=== PATIENT | female | born 1950 | race American Indian/Alaskan Native ===

== ENCOUNTER 2016-08-14 10:39 | Outpatient (CLI) | payer MEDICARE ==
--- NOTE | 2016-08-15 07:56 | Vascular Lab Report ---
Left Lower Extremity Venous Duplex Study: Reason for Exam: Leg pain. Comments on the Right: A limited duplex study was done of the proximal veins of the right lower extremity. All veins visualized are freely compressible without evidence of internal echogenicity. Flow is spontaneous and phasic throughout. No evidence of acute or chronic thrombus is seen in any of the vessels visualized. Comments on the Left: All veins visualized are freely compressible without evidence of internal echogenicity. Flow is spontaneous and phasic throughout. No evidence of acute or chronic thrombus is seen in any of the vessels visualized. Soft tissue changes consistent with Solis's cyst. Impression: No evidence of acute or chronic deep venous thrombosis in the left lower extremity.
== END 2016-08-14 10:40 | disposition home or self-care (01) ==
LOC: VAS 10:39
PROVIDERS: ATTEND Internal Medicine
DX: M79.605 Pain in left leg (principal); I10 Essential (primary) hypertension

== ENCOUNTER 2016-09-22 11:20 | Outpatient (CLI) | payer MEDICARE ==
--- NOTE | 2016-09-22 14:11 | Ultrasound Report ---
ULTRASOUND RENAL BILATERAL HISTORY: Chronic kidney disease, stage III. TECHNIQUE: transabdominal ultrasound with color Doppler interrogation. FINDINGS: The right kidney measures 10.3 x 3.1 x 4.6cm. Right renal cortex: 1.0cm. The left kidney measures 10.0 x 5.0 x 4.3cm. Left renal cortex: 1.0cm. The kidneys are normal size, contour and position. There is increased renal parenchymal echotexture bilaterally. Corticomedullary differentiation is preserved. No evidence for cystic disease, mass, hydronephrosis or perinephric fluid. The views of the bladder and the region of the ureters appear normal. IMPRESSION: Renal parenchymal disease. No focal renal lesion or hydronephrosis.
== END 2016-09-22 11:21 | disposition home or self-care (01) ==
LOC: US 11:20
PROVIDERS: ATTEND Student in an Organized Health Care Education/Training Program
DX: N18.3 Chronic kidney disease, stage 3 (moderate) (principal)
CPT/HCPCS: 76770

== ENCOUNTER 2016-11-11 09:25 | Outpatient (CLI) | payer MEDICARE ==
--- NOTE | 2016-11-11 11:05 | Mammography Report ---
BONE DENSITY STUDY: DEFINITIONS: BMD = Bone Mineral Density T-score = BMD related to mean peak bone mass of young adult (mean expressed in Standard Deviation) Z-score = Age matched BMD expressed in SD World Health Organization (WHO) Diagnostic Criteria Normal T-score > -1 SD Osteopenia T-score between -1 and -2.4 SD Osteoporosis T-score -2.5 SD or below FINDINGS: The weighted average BMD of lumbar spine L1-L4 is 0.954 with a T-score of -0.8. The weighted average BMD of hip is 0.958 with a T-score of 0.1. IMPRESSION: The patient's T-score is diagnostic for normal bone density and low relative risk for fracture. NOTE: BMD is not the only risk factor for fracture; also consider factors such as the patient's age, risk of falling, previous osteoporotic fracture, family history of osteoporotic fractures, current smoker, and low body weight. Rice's triangle is a region of interest in femur, predominantly of trabecular bone. It is not a true anatomic site, and [facility] does not recommend its use clinically.
== END 2016-11-11 09:26 | disposition home or self-care (01) ==
LOC: MAMMO 09:25
PROVIDERS: ATTEND Obstetrics & Gynecology
DX: M85.88 Other specified disorders of bone density and structure, other site (principal); A00-B99 Certain infectious and parasitic diseases
CPT/HCPCS: 77080

== ENCOUNTER 2017-01-19 07:51 | Outpatient (CLI) | payer MEDICARE ==
--- NOTE | 2017-01-19 08:31 | Mammography Report ---
BILATERAL MAMMOGRAM: FINDINGS: There are scattered fibroglandular densities (approximately 25%-50% glandular). No mass, distortion, suspicious calcification, or skin change is seen. No significant change identified when compared to prior examination in January 2016. CAD was utilized. IMPRESSION: Negative mammogram. There is no mammographic evidence of malignancy. RECOMMENDATION: Follow-up per ACS guidelines. BI-RADS CATEGORY: 1 = Negative ACR BI-RADS MAMMOGRAPHIC CODES: 0 = Needs additional imaging evaluation; 1 = Negative; 2 = Benign; 3 = Probably benign; 4 = Suspicious; 5 = Malignant; 6 = Known biopsy-proven malignancy COMMENT: 1. Dense breast tissue, i.e., adenosis, fibrocystic changes, etc., may obscure an underlying neoplasm. 2. Approximately 10% of cancers are not detected with mammography. 3. A negative mammography report should not delay biopsy if a clinically suspicious mass is present. COMMENT: Patient follow-up letters are generated in [employer].
== END 2017-01-19 07:52 | disposition home or self-care (01) ==
LOC: MAMMO 07:51
PROVIDERS: ATTEND Obstetrics & Gynecology
DX: Z12.31 Encounter for screening mammogram for malignant neoplasm of breast (principal); I11.0 Hypertensive heart disease with heart failure; I50.9 Heart failure, unspecified; J44.9 Chronic obstructive pulmonary disease, unspecified; I48.91 Unspecified atrial fibrillation
CPT/HCPCS: 77067; G0202

== ENCOUNTER 2017-03-12 08:08 | Day surgery (SDC) | payer MEDICARE ==
[~2017-03-12 08:08] MED LIST: TETRACAINE 0.5% OD PRN
--- NOTE | 2017-03-12 09:46 | Anesthesia Day of Surgery ---
Anesthesia Day of Surgery - Day of Surgery Patient Examined: Yes Patient is NPO: Yes Beta Blockers: Yes
--- NOTE | 2017-03-12 09:49 | Anesthesia Consultation ---
Anesthesia Consult and Med Hx Date of service: 03/12/17 - Airway Anesthetic Teeth Evaluation: Good ROM Head & Neck: Adequate Mental/Hyoid Distance: Adequate Mallampati Class: Class II Intubation Access Assessment: Probably Good - Pulmonary Exam CTA: Yes - Cardiac Exam Cardiac Exam: RRR - Pre-Operative Health Status ASA Pre-Surgery Classification: ASA3 Proposed Anesthetic Plan: MAC - Pulmonary Hx Smoking: Yes (QUIT 1996) Hx Asthma: No Hx Pneumonia: No Hx Sleep Apnea: No - Cardiovascular System Hx Hypertension: Yes (h/o CHF) Hx Coronary Artery Disease: No Hx Heart Attack/AMI: No Hx Angina: No Hx Percutaneous Transluminal Coronary Angioplasty (PTCA): No Hx Cardia Arrhythmia: Yes () Hx Pacemaker: No Hx Internal Defibrillator: No Hx Valvular Heart Disease: No Hx Heart Murmur: No Hx Peripheral Vascular Disease: No - Endocrine Hx Non-Insulin Dependent Diabetes: Yes - Hematic Hx Anemia: Yes (IN THE PAST) - Other Systems Hx Alcohol Use: No Hx Substance Use: No Hx Cancer: No Hx Obesity: Yes (morbid)
[2017-03-12] MEDS: AK-Dilate OD SCH ×3 (10:05→10:15)
[2017-03-12] MEDS: MYDRIACYL OD SCH ×3 (10:05→10:15)
[2017-03-12] MEDS: VIGAMOX OD SCH ×3 (10:05→10:15)
[2017-03-12] MEDS ORDERED: SUBLIMAZE ONE (10:40)
[2017-03-12] MEDS ORDERED: VERSED ONE (10:41)
--- NOTE | 2017-03-12 11:28 | Operative Report ---
Operative Report Operative Report: PATIENT'S NAME: DATE OF : DATE OF SURGERY: 03/12/2017 PREOPERATIVE DIAGNOSIS: Cataract right eye POSTOPERATIVE DIAGNOSIS: Same OPERATIVE PROCEDURE: Phacoemulsification with intraocular lens implantation, right eye SURGEON: Evita Hernandez M.D. MARKETING OUTREACH COORDINATOR SURGEON: Jostin Lens: [id number] 21.0 D ANESTHESIA: Monitored anesthesia care in combination with topical and intracameral anesthesia because of the established specific risk of reflux, arrhythmias, or anxiety attacks associated with ocular manipulation, as well as the difficulty of the foil operator to manage such potentially catastrophic events while simultaneously attempting to complete the surgical procedure and was deemed necessary for the patient's safety to have an Package Sealer Machine present during the procedure whenever possible. An Package Sealer Machine was utilized to regulate the intravenous sedation of the patient so the patient was cooperative yet not asleep in order for the patient to successfully maintain fixation of the eye on the operating light of the microscope. COMPLICATIONS: No surgical complications No blood loss. ALLERGIES: No known drug allergies PROGNOSIS: Excellent INDICATIONS FOR SURGERY: The patient is undergoing surgery in the hopes of eliminating or improving these visual difficulties. PROCEDURE: After arriving at the surgery center, the patient was given topical anesthetic and dilating drops, as noted in the record. The patient was then taken into the operating room and given more anesthetic drops. The eyelids , lashes, and lid margins were scrubbed with Betadine solution, and the patient was draped. The Nurse Package Sealer Machine administered IV sedation and monitored the patient during the procedure. The eye was then fixated with a 0.12, and a stab incision was made in the peripheral clear cornea into the anterior chamber. This was made on my left side. Viscoelastic was next used to fill the anterior chamber. The eye was once again fixated with the 0.12 forceps and a keratome was used make an incision in clear cornea peripherally on my right hand side temporally. The capsule forceps were used to open the central anterior capsule and then make a continuous round capsulotomy. Hydrodissection was carried out utilizing a cannula and balanced salt solution to delineate the cortical material from the capsule and the nucleus from the cortical material. The phaco tip was introduced into the eye and used to remove the anterior cortical material in the area of the capsulotomy. Then the phaco tip was buried into the nucleus, and a chopping instrument was introduced into the eye and used to provide countertraction in the nucleus between this instrument and the phaco tip fracturing the nucleus. This procedure was repeated multiple times, providing multiple small segments of the lens, and then the phaco tip was used to remove each of these segments. An I/A tip was then used to remove the remaining cortex. The anterior chamber was refilled with viscoelastic. An one-piece, acrylic intraocular lens was then placed into an inserting cartridge. The tip of the inserting cartridge was introduced into the keratome incision and into the anterior chamber. The implant was gently advanced through the cartridge and into the eye, where it unfolded, and both haptics were placed in the capsular bag, where it centered nicely and appeared to be well fixated. After placement of the intraocular lens, the I~and~A handpiece was placed back into the eye and used to remove the viscoelastic, including viscoelastic that was behind the optic of the intraocular lens. The anterior chamber was then filled with balanced salt solution, and hydration of the wound was used to cause swelling of the wound and more appropriate watertight closure. When the wound was found to be firm, the patient was asked to comment on how bright the light was. If there was no light perception at all or if the light was substantially dimmer than during the rest of the surgery, the amount of fluid in the eye was decompressed to lower the intraocular pressure until the patient could see the bright light again. This was done to avoid any damage or decreased blood flow to the optic nerve. MEDICATIONS APPLIED AT END OF SURGERY: One drop of Pred Forte and Vigamox The patient was given a shield to wear at night and was instructed not to rub or push on the eye. DISCHARGE SUMMARY: The patient was released in stable condition. The patient and those with the patient were given a written sheet of postoperative instructions and counseling on any abnormal laboratory studies. The patient is to see us tomorrow for follow-up in the office and is to call immediately for any difficulties. Evita Hernandez M.D. Date
--- NOTE | 2017-03-12 11:29 | Short Stay Summary ---
Short Stay Documentation Date of service: 03/12/17 - History H&P: obtained from office - Allergies and Medications Current Medications: Allergies No Known Allergies Allergy (Verified 12/21/13 14:56) Home Medications Medication Instructions Recorded Confirmed Last Taken Type Carvedilol 1 tab PO BID 12/21/13 03/12/17 03/12/17 History Aspirin EC [Aspirin Enteric Coated 81 mg PO QDAY #30 tablet.dr 03/12/1503/05/17 Rx TAB] ISOSORBIDE MONOnitrate [Imdur ER] 30 mg PO DAILY #30 tab.er.24h 03/12/1503/12/17 Rx NIFEdipine XL [Procardia Xl] 60 mg PO QDAY #30 tablet 03/12/15 03/12/17 Rx AtorvaSTATin [Lipitor] 40 mg PO QHS 03/09/17 03/12/17 03/11/17 History Latanoprost 0.005% [Xalatan 0.005%] 1 drop OU QPM 03/09/17 03/12/17 03/11/17 History medroxyPROGESTERone ACETATE 10 mg PO QDAY 03/09/17 03/12/17 03/11/17 History [Provera] metFORMIN [Glucophage] 500 mg PO BID 03/09/17 03/12/17 03/11/17 History Active Medications Moxifloxacin HCl (Vigamox) 1 drops OD Q5MIN [facility] Stop: 03/14/17 06:01 Last Admin: 03/12/17 10:15 Dose: 1 drops Phenylephrine HCl (Ak-Dilate) 1 drops OD Q5MIN [facility] Stop: 03/14/17 06:01 Last Admin: 03/12/17 10:15 Dose: 1 drops Prednisolone Acetate (Pred Forte 1%) 1 drops OD QID [facility] Tetracaine HCl (Tetracaine 0.5%) 1 drops OD Q5M PRN PRN Reason: Analgesia Last Admin: 03/12/17 10:05 Dose: 1 drops Tropicamide (Mydriacyl) 1 drops OD Q5MIN [facility] Stop: 03/14/17 06:01 Last Admin: 03/12/17 10:15 Dose: 1 drops - Brief post op/procedure progress note Date of procedure: 03/12/17 Pre-op diagnosis: cataract right eye Post-op diagnosis: same Procedure: Phacoemulsification with intraocular lens insertion right eye Anesthesia: MAC Surgeon: MORRIS BERNARDO Estimated blood loss: none Pathology: none Condition: stable - Disposition Condition at discharge: Good Disposition: DC-01 TO HOME OR SELFCARE - Discharge Diagnoses (1) Cataract Status: Resolved Qualifiers: Cataract type: age-related Age-related cataract type: nuclear Infantile/ juvenile cataract type: I Traumatic cataract type: T Complicated cataract type: C Secondary cataract type: S Laterality: right Qualified Code(s): H25.11 - Age-related nuclear cataract, right eye Short Stay Discharge Plan Follow up with: DOROTHY HENDRICKSON MD [Primary Care Provider] - 7 Days
[2017-03-12] MEDS ORDERED: PRED FORTE 1% ONE (11:50)
[2017-03-12] MEDS ORDERED: PRED FORTE 1% OD SCH (14:00)
--- NOTE | 2017-03-12 14:21 | Post Anesthesia Evaluation ---
- Post Anesthesia Evaluation Patient Participated: Yes Airway Patent: Yes Stable Respiratory Function: Yes Nausea/Vomiting: No Temp > 96.8F: Yes Pain Manageable: Yes Adequeate Hydration: Yes Anesthesia Complications: No Patient on Ventilator: No
[2017-03-12 15:47] VITALS: BP 137/89
== END 2017-03-12 12:15 | disposition home or self-care (01) ==
LOC: OR 08:08
DX: E11.36 Type 2 diabetes mellitus with diabetic cataract (principal); I11.0 Hypertensive heart disease with heart failure; I50.9 Heart failure, unspecified; I48.91 Unspecified atrial fibrillation; D64.9 Anemia, unspecified; E66.01 Morbid (severe) obesity due to excess calories; Z68.41 Body mass index [BMI] 40.0-44.9, adult; Z79.84 Long term (current) use of oral hypoglycemic drugs; Z79.899 Other long term (current) drug therapy; Z87.891 Personal history of nicotine dependence
CPT/HCPCS: 66984; 82962; J2250; J3010; V2632

== ENCOUNTER 2017-03-26 07:27 | Day surgery (SDC) | payer MEDICARE ==
[~2017-03-26 07:27] MED LIST changes: -TETRACAINE 0.5% OD PRN; +TETRACAINE 0.5% OS PRN
--- NOTE | 2017-03-26 08:02 | Anesthesia Day of Surgery ---
Anesthesia Day of Surgery - Day of Surgery Patient Examined: Yes Patient H&P Reviewed: Yes Patient is NPO: Yes Beta Blockers: Yes
--- NOTE | 2017-03-26 08:02 | Anesthesia Consultation ---
Anesthesia Consult and Med Hx Date of service: 03/26/17 - Airway Anesthetic Teeth Evaluation: Good ROM Head & Neck: Adequate Mental/Hyoid Distance: Adequate Mallampati Class: Class II Intubation Access Assessment: Probably Good - Pulmonary Exam CTA: Yes - Cardiac Exam Cardiac Exam: RRR - Pre-Operative Health Status ASA Pre-Surgery Classification: ASA3 Proposed Anesthetic Plan: MAC - Pulmonary Hx Smoking: Yes (QUIT 1996) Hx Asthma: No COPD: Yes Hx Pneumonia: No Hx Sleep Apnea: No - Cardiovascular System Hx Hypertension: Yes (h/o CHF) Hx Coronary Artery Disease: No Hx Heart Attack/AMI: No Hx Angina: No Hx Percutaneous Transluminal Coronary Angioplasty (PTCA): No Hx Cardia Arrhythmia: Yes () Hx Pacemaker: No Hx Internal Defibrillator: No Hx Valvular Heart Disease: No Hx Heart Murmur: No Hx Peripheral Vascular Disease: No - Endocrine Hx Non-Insulin Dependent Diabetes: Yes - Other Systems Hx Cancer: No Hx Obesity: Yes
[2017-03-26] MEDS: AK-Dilate OS SCH ×3 (08:05→08:15)
[2017-03-26] MEDS: MYDRIACYL OS SCH ×3 (08:05→08:15)
[2017-03-26] MEDS: VIGAMOX OS SCH ×3 (08:05→08:15)
[2017-03-26] MEDS ORDERED: SUBLIMAZE ONE (09:09)
[2017-03-26] MEDS ORDERED: VERSED ONE (09:10)
--- NOTE | 2017-03-26 10:08 | Short Stay Summary ---
Short Stay Documentation Date of service: 03/26/17 - History H&P: obtained from office - Allergies and Medications Current Medications: Allergies No Known Allergies Allergy (Verified 12/21/13 14:56) Home Medications Medication Instructions Recorded Confirmed Last Taken Type Carvedilol 1 tab PO BID 12/21/13 03/12/17 03/12/17 History Aspirin EC [Aspirin Enteric Coated 81 mg PO QDAY #30 tablet.dr 03/12/1503/05/17 Rx TAB] ISOSORBIDE MONOnitrate [Imdur ER] 30 mg PO DAILY #30 tab.er.24h 03/12/1503/12/17 Rx NIFEdipine XL [Procardia Xl] 60 mg PO QDAY #30 tablet 03/12/15 03/12/17 Rx AtorvaSTATin [Lipitor] 40 mg PO QHS 03/09/17 03/12/17 03/11/17 History Latanoprost 0.005% [Xalatan 0.005%] 1 drop OU QPM 03/09/17 03/12/17 03/11/17 History medroxyPROGESTERone ACETATE 10 mg PO QDAY 03/09/17 03/12/17 03/11/17 History [Provera] metFORMIN [Glucophage] 500 mg PO BID 03/09/17 03/12/17 03/11/17 History Active Medications Moxifloxacin HCl (Vigamox) 1 drops OS Q5MIN [facility] Stop: 03/28/17 06:01 Last Admin: 03/26/17 08:15 Dose: 1 drops Phenylephrine HCl (Ak-Dilate) 1 drops OS Q5MIN [facility] Stop: 03/28/17 06:01 Last Admin: 03/26/17 08:15 Dose: 1 drops Prednisolone Acetate (Pred Forte 1%) 1 drops OS QID [facility] Tetracaine HCl (Tetracaine 0.5%) 1 drops OS Q5M PRN PRN Reason: Analgesia Stop: 03/26/17 18:00 Last Admin: 03/26/17 08:04 Dose: 1 drops Tropicamide (Mydriacyl) 1 drops OS Q5MIN [facility] Stop: 03/28/17 06:01 Last Admin: 03/26/17 08:15 Dose: 1 drops - Brief post op/procedure progress note Date of procedure: 03/26/17 Pre-op diagnosis: left cataract Post-op diagnosis: same Procedure: Phacoemulsification with intraocular lens insertion left eye Anesthesia: MAC Surgeon: MORRIS BERNARDO Estimated blood loss: none Pathology: none Condition: stable - Disposition Condition at discharge: Good Disposition: DC-01 TO HOME OR SELFCARE - Discharge Diagnoses (1) Cataract Status: Resolved Qualifiers: Cataract type: age-related Age-related cataract type: nuclear Infantile/ juvenile cataract type: I Traumatic cataract type: T Complicated cataract type: C Secondary cataract type: S Laterality: left Qualified Code(s): H25.12 - Age-related nuclear cataract, left eye Short Stay Discharge Plan Follow up with: DOROTHY HENDRICKSON MD [Primary Care Provider] - 7 Days
--- NOTE | 2017-03-26 10:08 | Operative Report ---
Operative Report Operative Report: PATIENT'S NAME: DATE OF : DATE OF SURGERY: 03/26/2017 PREOPERATIVE DIAGNOSIS: Cataract left eye POSTOPERATIVE DIAGNOSIS: Same OPERATIVE PROCEDURE: Phacoemulsification with intraocular lens implantation, left eye SURGEON: Evita Hernandez M.D. AUDIT MANAGER SURGEON: Jostin Lens: [id number] 21.0 D ANESTHESIA: Monitored anesthesia care in combination with topical and intracameral anesthesia because of the established specific risk of reflux, arrhythmias, or anxiety attacks associated with ocular manipulation, as well as the difficulty of the global compensation analyst to manage such potentially catastrophic events while simultaneously attempting to complete the surgical procedure and was deemed necessary for the patient's safety to have an Tube Builder present during the procedure whenever possible. An Tube Builder was utilized to regulate the intravenous sedation of the patient so the patient was cooperative yet not asleep in order for the patient to successfully maintain fixation of the eye on the operating light of the microscope. COMPLICATIONS: No surgical complications No blood loss. ALLERGIES: No known drug allergies PROGNOSIS: Excellent INDICATIONS FOR SURGERY: The patient is undergoing surgery in the hopes of eliminating or improving these visual difficulties. PROCEDURE: After arriving at the surgery center, the patient was given topical anesthetic and dilating drops, as noted in the record. The patient was then taken into the operating room and given more anesthetic drops. The eyelids , lashes, and lid margins were scrubbed with Betadine solution, and the patient was draped. The Nurse Tube Builder administered IV sedation and monitored the patient during the procedure. The eye was then fixated with a 0.12, and a stab incision was made in the peripheral clear cornea into the anterior chamber. This was made on my left side. Viscoelastic was next used to fill the anterior chamber. The eye was once again fixated with the 0.12 forceps and a keratome was used make an incision in clear cornea peripherally on my right hand side temporally. The capsule forceps were used to open the central anterior capsule and then make a continuous round capsulotomy. Hydrodissection was carried out utilizing a cannula and balanced salt solution to delineate the cortical material from the capsule and the nucleus from the cortical material. The phaco tip was introduced into the eye and used to remove the anterior cortical material in the area of the capsulotomy. Then the phaco tip was buried into the nucleus, and a chopping instrument was introduced into the eye and used to provide countertraction in the nucleus between this instrument and the phaco tip fracturing the nucleus. This procedure was repeated multiple times, providing multiple small segments of the lens, and then the phaco tip was used to remove each of these segments. An I/A tip was then used to remove the remaining cortex. The anterior chamber was refilled with viscoelastic. An one-piece, acrylic intraocular lens was then placed into an inserting cartridge. The tip of the inserting cartridge was introduced into the keratome incision and into the anterior chamber. The implant was gently advanced through the cartridge and into the eye, where it unfolded, and both haptics were placed in the capsular bag, where it centered nicely and appeared to be well fixated. After placement of the intraocular lens, the I~and~A handpiece was placed back into the eye and used to remove the viscoelastic, including viscoelastic that was behind the optic of the intraocular lens. The anterior chamber was then filled with balanced salt solution, and hydration of the wound was used to cause swelling of the wound and more appropriate watertight closure. When the wound was found to be firm, the patient was asked to comment on how bright the light was. If there was no light perception at all or if the light was substantially dimmer than during the rest of the surgery, the amount of fluid in the eye was decompressed to lower the intraocular pressure until the patient could see the bright light again. This was done to avoid any damage or decreased blood flow to the optic nerve. MEDICATIONS APPLIED AT END OF SURGERY: One drop of Pred Forte and Vigamox The patient was given a shield to wear at night and was instructed not to rub or push on the eye. DISCHARGE SUMMARY: The patient was released in stable condition. The patient and those with the patient were given a written sheet of postoperative instructions and counseling on any abnormal laboratory studies. The patient is to see us tomorrow for follow-up in the office and is to call immediately for any difficulties. Evita Hernandez M.D. Date
--- NOTE | 2017-03-26 10:13 | Post Anesthesia Evaluation ---
- Post Anesthesia Evaluation Patient Participated: Yes Airway Patent: Yes Stable Respiratory Function: Yes Nausea/Vomiting: No Temp > 96.8F: Yes Pain Manageable: Yes Adequeate Hydration: Yes Anesthesia Complications: No Block Receding Appropriately: Not Applicable Patient on Ventilator: No
[2017-03-26] MEDS ORDERED: PRED FORTE 1% OS SCH (10:30)
[2017-03-26 10:42] VITALS: BP 130/92
== END 2017-03-26 10:46 | disposition home or self-care (01) ==
LOC: OR 07:27
DX: E11.36 Type 2 diabetes mellitus with diabetic cataract (principal); H25.12 Age-related nuclear cataract, left eye; J44.9 Chronic obstructive pulmonary disease, unspecified; I11.0 Hypertensive heart disease with heart failure; I50.9 Heart failure, unspecified; I48.91 Unspecified atrial fibrillation; I25.10 Atherosclerotic heart disease of native coronary artery without angina pectoris; E66.9 Obesity, unspecified; Z79.82 Long term (current) use of aspirin; Z87.891 Personal history of nicotine dependence
CPT/HCPCS: 66984; 82962; J2250; J3010; V2632

== ENCOUNTER 2017-05-31 09:10 | Inpatient (IN) | payer MEDICARE ==
[2017-05-31 09:57] LABS: Basophils % (Auto) 0.6 % (0.0-1.8); Eosinophils % (Auto) 0.9 % (0.0-4.3); Hematocrit 36.7 % (30.3-42.9); Hemoglobin 11.6 gm/dl (10.1-14.3); Mean Corpuscular HGB Conc 32 % (30-34); Mean Corpuscular Volume 78 fl (79-97); Platelet Count 263 K/mm3 (140-440); Red Blood Count 4.72 M/mm3 (3.65-5.03); Red Cell Distribution Width 19.8 % (13.2-15.2); White Blood Count 10.2 K/mm3 (4.5-11.0)
[2017-05-31 09:59] LABS: Mean Corpuscular Hemoglobin 25 pg (28-32)
[2017-05-31 10:17] LABS: Calcium 9.2 mg/dL (8.4-10.2); Chloride 102.2 mmol/L (98-107); Potassium 3.7 mmol/L (3.6-5.0)
--- NOTE | 2017-05-31 10:43 | XRay Report ---
CHEST TWO VIEWS: 05/31/17 10:09 CLINICAL: Chest pain. COMPARISON: 03/10/15 FINDINGS: Cardiomegaly and mild redistribution of pulmonary blood flow to the upper lobes. The lungs are normally expanded and clear.The bones and soft tissues are unremarkable. IMPRESSION: Cardiomegaly and mild pulmonary venous hypertension. Coronary edema. No pleural effusion.
[2017-05-31] MEDS ORDERED: BABY ASPIRIN PO ONE (10:52)
--- NOTE | 2017-05-31 10:54 | Emergency Department Report ---
ED Chest Pain HPI - General Chief Complaint: Chest Pain Stated Complaint: CHEST PAIN Time Seen by Provider: 05/31/17 10:48 Source: patient Mode of arrival: Ambulatory Limitations: No Limitations - History of Present Illness Initial Comments: Patient is 66 years old female with history of atrial fibrillation, congestive heart failure and hypertension. She presented to the ER today with left-sided chest pain, tightening, provided to her left hand right upper extremities. Patient stated that her pain started last night at around 11 PM. Patient does not have any pain at this moment. She denied any shortness of breath, fever, cough or lower extremity swelling. Patient was admitted to the hospital in 2014 , had a cardiac catheterization that showed normal coronary arteries. MD Complaint: chest pain -: Sudden Onset: during rest Pain Location: substernal Pain Radiation: RUEIZZY Severity scale (0 -10): 0 Quality: tightness Consistency: intermittent - Related Data Home Medications Medication Instructions Recorded Confirmed Last Taken Carvedilol 1 tab PO BID 12/21/13 03/26/17 03/26/17 06:45 AtorvaSTATin [Lipitor] 40 mg PO QHS 03/09/17 03/26/17 03/25/17 Latanoprost 0.005% [Xalatan 0.005%] 1 drop OU QPM 03/09/17 03/26/17 03/25/17 metFORMIN [Glucophage] 500 mg PO BID 03/09/17 03/26/17 03/25/17 Previous Rx's Medication Instructions Recorded Last Taken Type Aspirin EC [Aspirin Enteric Coated 81 mg PO QDAY #30 tablet.dr 03/12/15 Rx TAB] ISOSORBIDE MONOnitrate [Imdur ER] 30 mg PO DAILY #30 tab.er.24h 03/12/15 06:45 Rx NIFEdipine XL [Procardia Xl] 60 mg PO QDAY #30 tablet 03/12/15 03/26/17 06:45 Rx Allergies Allergy/AdvReac Type Severity Reaction Status Date / Time No Known Allergies Allergy Verified 05/31/17 09:28 Heart Score - HEART Score History: Moderately suspicious EKG: Non-specific Age: 45-65 Risk factors: > 3 risk factors or hx of atherosclerotic disease Troponin: > 3x normal limit HEART Score: 7 ED Review of Systems ROS: Stated complaint: CHEST PAIN Other details as noted in HPI Comment: All other systems reviewed and negative Constitutional: denies: chills, fever Respiratory: denies: cough, orthopnea, shortness of breath, SOB with exertion, SOB at rest Cardiovascular: chest pain. denies: palpitations, dyspnea on exertion, orthopnea Gastrointestinal: denies: abdominal pain, nausea, vomiting, diarrhea, constipation, hematemesis Skin: denies: rash, lesions Neurological: denies: headache, weakness, numbness, paresthesias, confusion, abnormal gait ED Past Medical Hx - Past Medical History Previous Medical History?: Yes Hx Hypertension: Yes (h/o CHF) Hx Heart Attack/AMI: No Hx Congestive Heart Failure: Yes Hx Deep Vein Thrombosis: No Hx Pulmonary Embolism: No Hx Asthma: No Hx COPD: Yes Hx Tuberculosis: No Additional medical history: Atrial Fib. - Surgical History Past Surgical History?: No Hx Coronary Stent: No Hx Pacemaker: No Hx Internal Defibrillator: No - Social History Smoking Status: Never Smoker - Medications Home Medications: Home Medications Medication Instructions Recorded Confirmed Last Taken Type Carvedilol 1 tab PO BID 12/21/13 03/26/17 03/26/17 06:45 History Aspirin EC [Aspirin Enteric Coated 81 mg PO QDAY #30 tablet.dr 03/12/1503/19/17 Rx TAB] ISOSORBIDE MONOnitrate [Imdur ER] 30 mg PO DAILY #30 tab.er.24h 03/12/1503/26/17 06:45 Rx NIFEdipine XL [Procardia Xl] 60 mg PO QDAY #30 tablet 03/12/15 03/26/17 06:45 Rx AtorvaSTATin [Lipitor] 40 mg PO QHS 03/09/17 03/26/17 03/25/17 History Latanoprost 0.005% [Xalatan 0.005%] 1 drop OU QPM 03/09/17 03/26/17 03/25/17 History metFORMIN [Glucophage] 500 mg PO BID 03/09/17 03/26/17 03/25/17 History ED Physical Exam - General Limitations: No Limitations General appearance: alert, in no apparent distress - Head Head exam: Present: atraumatic, normocephalic, normal inspection - Eye Eye exam: Present: normal appearance, PERRL - ENT ENT exam: Present: normal exam, mucous membranes moist - Neck Neck exam: Present: normal inspection, full ROM. Absent: meningismus - Respiratory Respiratory exam: Present: normal lung sounds bilaterally. Absent: respiratory distress, wheezes, rales, rhonchi, stridor, accessory muscle use, decreased breath sounds, prolonged expiratory - Cardiovascular Cardiovascular Exam: Present: regular rate, normal rhythm, normal heart sounds - GI/Abdominal GI/Abdominal exam: Present: soft, normal bowel sounds. Absent: distended, tenderness, guarding, rebound, rigid, organomegaly, mass, bruit, pulsatile mass , hernia - Extremities Exam Extremities exam: Present: normal inspection, full ROM, normal capillary refill - Back Exam Back exam: Present: normal inspection. Absent: tenderness, CVA tenderness (R), CVA tenderness (L) - Neurological Exam Neurological exam: Present: alert, oriented X3, CN II-XII intact, normal gait - Skin Skin exam: Present: warm, intact, normal color. Absent: cyanosis, diaphoretic, erythema ED Course Vital Signs 05/31/17 09:28 Temperature 98.4 F Pulse Rate 95 H Respiratory 18 Rate Blood Pressure 163/120 O2 Sat by Pulse 98 Oximetry ALMAS score - Almas Score Age > 65: (0) No Aspirin use within the Past 7 Days: (0) No 3 or more CAD Risk Factors: (1) Yes 2 or more Angina events in past 24 hrs: (0) No Known CAD with more than 50% Stenosis: (0) No Elevated Cardiac Markers: (0) No ST Deviation Greater than 0.5mm: (1) Yes ALMAS Score: 2 ED Medical Decision Making - Lab Data Result diagrams: 05/31/17 09:44 05/31/17 09:44 - EKG Data -: EKG Interpreted by Me Rate: normal - EKG Data Interpretation: no acute changes, other (atrial fibrillation) - Radiology Data Radiology results: report reviewed Referring Physician: ED DOC Patient Name: EDWARD SHOEMAKER Date of : 1950 Sex: Female Report Date: 2017-05-31 Report Status: Finalized Findings [facility] [address] [place] [address] XRay Report Signed Patient: EDWARD SHOEMAKER MR#: [id number] : 1950 Acct:[id number] Age/Sex: 66 / F ADM Date: 05/31/17 Loc: ED Attending Dr: Ordering Physician: NELIA MILLS MD Date of Service: 05/31/17 Procedure(s): XR chest routine 2V Accession Number(s): [id number] cc: ED MD LINA Fluoro Time In Minutes: CHEST TWO VIEWS: 05/31/17 10:09 CLINICAL: Chest pain. COMPARISON: 03/10/15 FINDINGS: Cardiomegaly and mild redistribution of pulmonary blood flow to the upper lobes. The lungs are normally expanded and clear.The bones and soft tissues are unremarkable. IMPRESSION: Cardiomegaly and mild pulmonary venous hypertension. Coronary edema. No pleural effusion. Transcribed By: REF Dictated By: CHELSEY HAMILTON MD Electronically Authenticated By: CHELSEY HAMILTON MD Signed Date/Time: 05/31/17 1038 DD/ 1037 TD/TT: 05/31/17 1038 - Medical Decision Making Discussed with Dr. Saldaña, I presented the patient to him, he agreed to admit the patient to his service. Critical care attestation.: If time is entered above; I have spent that time in minutes in the direct care of this critically ill patient, excluding procedure time. ED Disposition Clinical Impression: Acute coronary syndrome, Chest pain, Elevated troponin Disposition: OP ADMIT IP TO THIS HOSP Is pt being admited?: Yes Condition: Stable Instructions: Chest Pain (ED) Referrals: [facility] [Other] - 3-5 Days
--- NOTE | 2017-05-31 16:05 | History and Physical Report ---
History of Present Illness Date of examination: 05/31/17 Date of admission: 05/31/17 11:09 Chief complaint: CC L Side Chest pain since last night History of present illness: History of Present Illness 66 years old AAF with history of congestive heart failure, hypertension, Glaucoma and HLD presented to the ER today with left-sided chest pain, tightening, radiating to her left upper extremity. Patient stated that her pain started last night at around 11 PM. Patient does not have any pain at this moment. She denied any shortness of breath, fever, cough or lower extremity swelling. Patient was admitted to the hospital in 2014, had a cardiac catheterization that showed normal coronary arteries. No exacerbating or relieving factors.No recent travel. Past Medical History Hypertension Congestive Heart Failure COPD Additional medical history: Atrial Fib. Surgical History None - Social History Smoking Status: Never Smoker Fam Hx HTN Medications Home Medications: Home Medications Medication Instructions Recorded Confirmed Last Taken Type Carvedilol 1 tab PO BID 12/21/13 03/26/17 03/26/17 06:45 History Aspirin EC [Aspirin Enteric Coated 81 mg PO QDAY #30 tablet.dr 03/12/1503/19/17 Rx TAB] ISOSORBIDE MONOnitrate [Imdur ER] 30 mg PO DAILY #30 tab.er.24h 03/12/1503/26/17 06:45 Rx NIFEdipine XL [Procardia Xl] 60 mg PO QDAY #30 tablet 03/12/15 03/26/17 06:45 Rx AtorvaSTATin [Lipitor] 40 mg PO QHS 03/09/17 03/26/17 03/25/17 History Latanoprost 0.005% [Xalatan 0.005%] 1 drop OU QPM 03/09/17 03/26/17 03/25/17 History metFORMIN [Glucophage] 500 mg PO BID 03/09/17 03/26/17 03/25/17 History Review of Systems ROS: Stated complaint: CHEST PAIN Other details as noted in HPI Comment: All other systems reviewed and negative Constitutional: denies: chills, fever Respiratory: denies: cough, orthopnea, shortness of breath, SOB with exertion, SOB at rest Cardiovascular: chest pain. denies: palpitations, dyspnea on exertion, orthopnea Gastrointestinal: denies: abdominal pain, nausea, vomiting, diarrhea, constipation, hematemesis Skin: denies: rash, lesions Neurological: denies: headache, weakness, numbness, paresthesias, confusion, abnormal gait Medications and Allergies Allergies Allergy/AdvReac Type Severity Reaction Status Date / Time No Known Allergies Allergy Verified 05/31/17 09:28 Home Medications Medication Instructions Recorded Confirmed Last Taken Type Carvedilol 1 tab PO BID 12/21/13 05/31/17 05/31/17 History Aspirin EC [Aspirin Enteric Coated 81 mg PO QDAY #30 tablet.dr 03/12/1505/31/17 Rx TAB] ISOSORBIDE MONOnitrate [Imdur ER] 30 mg PO DAILY #30 tab.er.24h 03/12/1505/31/17 Rx NIFEdipine XL [Procardia Xl] 60 mg PO QDAY #30 tablet 03/12/15 05/31/17 Rx AtorvaSTATin [Lipitor] 40 mg PO QHS 03/09/17 05/31/17 05/31/17 History metFORMIN [Glucophage] 500 mg PO BID 03/09/17 05/31/17 05/31/17 History Exam - Constitutional Vitals: Temp Pulse Resp BP Pulse Ox 98.4 F 83 21 124/91 96 05/31/17 09:28 05/31/17 15:00 05/31/17 15:00 05/31/17 15:00 05/31/17 15:00 General appearance: Present: no acute distress, well-nourished - EENT Eyes: Present: PERRL ENT: hearing intact, clear oral mucosa - Neck Neck: Present: supple, normal ROM - Respiratory Respiratory effort: normal Respiratory: bilateral: CTA - Cardiovascular Heart rate: 80 Rhythm: regular Heart Sounds: Present: S1 & S2. Absent: rub, click - Extremities Extremities: no ischemia, pulses intact, pulses symmetrical, No edema Peripheral Pulses: within normal limits - Abdominal General gastrointestinal: Present: soft, non-tender, non-distended, normal bowel sounds Female genitourinary: Present: normal - Rectal Rectal Exam: deferred - Integumentary Integumentary: Present: clear, warm, dry - Musculoskeletal Musculoskeletal: gait normal, strength equal bilaterally - Psychiatric Psychiatric: appropriate mood/affect, intact judgment & insight - Neurologic Neurologic: CNII-XII intact, moves all extremities - Allied Health Allied health notes reviewed: nursing, case management Results - Labs CBC & Chem 7: 06/01/17 06:22 06/01/17 06:22 Labs: Laboratory Last Values WBC 10.2 K/mm3 (4.5-11.0) 05/31/17 09:44 RBC 4.72 M/mm3 (3.65-5.03) 05/31/17 09:44 Hgb 11.6 gm/dl (10.1-14.3) 05/31/17 09:44 Hct 36.7 % (30.3-42.9) 05/31/17 09:44 MCV 78 fl (79-97) L 05/31/17 09:44 MCH 25 pg (28-32) L 05/31/17 09:44 MCHC 32 % (30-34) 05/31/17 09:44 RDW 19.8 % (13.2-15.2) H 05/31/17 09:44 Plt Count 263 K/mm3 (140-440) 05/31/17 09:44 Lymph % (Auto) 16.8 % (13.4-35.0) 05/31/17 09:44 [place] % (Auto) 6.8 % (0.0-7.3) 05/31/17 09:44 Eos % (Auto) 0.9 % (0.0-4.3) 05/31/17 09:44 Baso % (Auto) 0.6 % (0.0-1.8) 05/31/17 09:44 Lymph # 1.7 K/mm3 (1.2-5.4) 05/31/17 09:44 [place] # 0.7 K/mm3 (0.0-0.8) 05/31/17 09:44 Eos # 0.1 K/mm3 (0.0-0.4) 05/31/17 09:44 Baso # 0.1 K/mm3 (0.0-0.1) 05/31/17 09:44 Seg Neutrophils % 74.9 % (40.0-70.0) H 05/31/17 09:44 Seg Neutrophils # 7.7 K/mm3 (1.8-7.7) 05/31/17 09:44 Sodium 143 mmol/L (137-145) 05/31/17 09:44 Potassium 3.7 mmol/L (3.6-5.0) 05/31/17 09:44 Chloride 102.2 mmol/L (98-107) 05/31/17 09:44 Carbon Dioxide 29 mmol/L (22-30) 05/31/17 09:44 Anion Gap 16 mmol/L 05/31/17 09:44 BUN 16 mg/dL (7-17) 05/31/17 09:44 Creatinine 1.4 mg/dL (0.7-1.2) H 05/31/17 09:44 Estimated GFR 46 ml/min 05/31/17 09:44 BUN/Creatinine Ratio 11 % 05/31/17 09:44 Glucose 99 mg/dL (65-100) 05/31/17 09:44 Calcium 9.2 mg/dL (8.4-10.2) 05/31/17 09:44 Troponin T 1.480 ng/mL (0.00-0.029) H* 05/31/17 13:29 NT-Pro-B Natriuret Pep 2482 pg/mL (0-900) H 05/31/17 09:44 Triglycerides 62 mg/dL (2-149) 05/31/17 09:44 Cholesterol 82 mg/dL (50-199) 05/31/17 09:44 LDL Cholesterol Direct 19 mg/dL (50-130) L 05/31/17 09:44 HDL Cholesterol 51 mg/dL (40-59) 05/31/17 09:44 Cholesterol/HDL Ratio 1.60 % 05/31/17 09:44 - Imaging and Cardiology EKG: report reviewed (Afib) Chest x-ray: report reviewed (Mild Pulmonary HTN and Cardiomegaly) Assessment and Plan Advance Directives: Yes (Full code) VTE prophylaxis?: Chemical Plan of care discussed with patient/family: Yes - Patient Problems (1) NSTEMI (non-ST elevated myocardial infarction) Current Visit: Yes Status: Acute Plan to address problem: Initiated on Heparin protocol Informed Cardiology Cardiac enzymes elevated (2) Atrial fibrillation Current Visit: No Status: Chronic Qualifiers: Atrial fibrillation type: chronic Qualified Code(s): I48.2 - Chronic atrial fibrillation Plan to address problem: Not on Eliquis Will add Eliquis (3) HTN (hypertension) Current Visit: Yes Status: Chronic Qualifiers: Hypertension type: essential hypertension Qualified Code(s): I10 - Essential (primary) hypertension Plan to address problem: Cont Carvedilol and Nifedipine (4) CAD (coronary artery disease) Current Visit: Yes Status: Chronic Qualifiers: Coronary Disease-Associated Artery/Lesion type: [place] artery [place] vs. transplanted heart: [place] heart Plan to address problem: Cont ASA and Imdur (5) Glaucoma Current Visit: Yes Status: Chronic Qualifiers: Glaucoma type: open-angle Laterality: bilateral Plan to address problem: Cont Latanoprost eye drops (6) T2DM (type 2 diabetes mellitus) Current Visit: Yes Status: Chronic Qualifiers: Diabetes mellitus complication status: without complication Diabetes mellitus fpc insulin use: without fpc use Qualified Code(s): E11.9 - Type 2 diabetes mellitus without complications Plan to address problem: Cont Metformin and coverage (7) Reflux esophagitis Current Visit: Yes Status: Acute Plan to address problem: Added Protonix (8) DVT prophylaxis Current Visit: Yes Status: Acute Plan to address problem: On Lovenox
[2017-05-31] MEDS ORDERED: TYLENOL PO PRN (16:07)
[2017-05-31] MEDS ORDERED: MILK OF MAGNESIA PO PRN (16:07)
[2017-05-31] MEDS ORDERED: DULCOLAX PR PRN (16:07)
[2017-05-31] MEDS ORDERED: ZOFRAN IV PRN (16:07)
[2017-05-31] MEDS ORDERED: PERCOCET 5/325 PO PRN (16:07)
[2017-05-31] MEDS ORDERED: MORPHINE IV PRN (16:07)
[2017-05-31 16:53] LABS: Creatine Kinase MB 31.8 ng/mL (0.0-4.0)
[2017-05-31] MEDS: NOVOLOG SUB-Q SCH ×2 (19:50→22:14)
[2017-05-31] MEDS: PEPCID IV SCH (22:03)
[2017-05-31] MEDS: COREG PO SCH (22:03)
[2017-05-31 23:33] LABS: Creatine Kinase MB 17.9 ng/mL (0.0-4.0)
[2017-06-01 07:16] LABS: Creatine Kinase MB 8.6 ng/mL (0.0-4.0)
[2017-06-01 07:17] LABS: Albumin 3.1 g/dL (3.9-5); Albumin/Globulin Ratio 0.9 %; Bilirubin,Total 0.6 mg/dL (0.1-1.2); Calcium 8.5 mg/dL (8.4-10.2); Chloride 105.3 mmol/L (98-107); Potassium 3.6 mmol/L (3.6-5.0); Total Protein 6.4 g/dL (6.3-8.2)
[2017-06-01 07:23] LABS: Basophils % (Auto) 0.5 % (0.0-1.8); Eosinophils % (Auto) 1.1 % (0.0-4.3); Hematocrit 34.7 % (30.3-42.9); Mean Corpuscular HGB Conc 32 % (30-34); Mean Corpuscular Volume 78 fl (79-97); Platelet Count 232 K/mm3 (140-440); Red Blood Count 4.48 M/mm3 (3.65-5.03); White Blood Count 10.1 K/mm3 (4.5-11.0)
[2017-06-01 07:29] LABS: Mean Corpuscular Hemoglobin 25 pg (28-32); Red Cell Distribution Width 20.3 % (13.2-15.2)
[2017-06-01 07:53] LABS: Hematocrit 34.6 % (30.3-42.9); Hemoglobin 10.9 gm/dl (10.1-14.3)
[2017-06-01] MEDS ORDERED: HEPARIN/ 0.45% NACL-25,000 UNIT/500 ML 25,000 UNIT/500 ML BAG IV SCH ×2 (08:00)
[2017-06-01 08:03] LABS: INR 0.97 (0.87-1.13)
[2017-06-01 08:04] LABS: Partial Thromboplastin Time 25.9 Sec. (24.2-36.6)
--- NOTE | 2017-06-01 08:27 | Progress Note ---
<KASH BEATTY - Last Filed: 06/01/17 14:19> Assessment and Plan Assessment and plan: 66 years old AAF with history of congestive heart failure, hypertension, Glaucoma and HLD presented to the ER today with left-sided chest pain, tightening, radiating to her left upper extremity. NSTEMI (non-ST elevated myocardial infarction) Cardiac enzymes elevated EKG showed A-fib which is chronic Patient had Cath done and reveled normal LVEF Angiographically normal coronaries except for mid LAD bridging Cardiology following Patient might go home tomorrow when BP is improved Chronic Atrial fibrillation Patient refused anticoagulation in the past Closely monitor Uncontrolled hypertension Continue home antihypertensive medication IV hydralazine for SBP>160 Closely monitor blood pressure Coronary artery disease Continue on aspirin, Plavix and Lopressor Diabetes mellitus type 2 Continue on metformin Accu-Chek before meals and at bedtime Sliding scale insulin/NovoLog ADA consistent carbohydrate diet Glaucoma Cont Latanoprost eye drops GERD Continue Protonix DVT prophylaxis On Lovenox History Interval history: Patient denies chest pain, shortness of breath, or any discomfort. Labs and nursing notes reviewed. Hospitalist Physical - Constitutional Vitals: Temp Pulse Resp BP Pulse Ox 98.9 F 88 20 142/78 96 05/31/17 23:52 06/01/17 04:00 06/01/17 04:42 06/01/17 03:29 06/01/17 03:29 General appearance: Present: no acute distress, well-nourished - EENT Eyes: Present: PERRL ENT: hearing intact - Neck Neck: Present: supple - Respiratory Respiratory effort: normal Respiratory: bilateral: CTA - Cardiovascular Rhythm: regular Heart Sounds: Present: S1 & S2 - Abdominal General gastrointestinal: soft, non-tender - Integumentary Integumentary: Present: clear, warm, dry - Psychiatric Psychiatric: appropriate mood/affect - Neurologic Neurologic: moves all extremities - Allied Health Allied health notes reviewed: nursing Results - Labs CBC & Chem 7: 06/01/17 07:34 06/01/17 06:22 Labs: Laboratory Last Values WBC 10.1 K/mm3 (4.5-11.0) 06/01/17 06:22 RBC 4.48 M/mm3 (3.65-5.03) 06/01/17 06:22 Hgb 11.0 gm/dl (10.1-14.3) 06/01/17 06:22 Hct 34.7 % (30.3-42.9) 06/01/17 06:22 MCV 78 fl (79-97) L 06/01/17 06:22 MCH 25 pg (28-32) L 06/01/17 06:22 MCHC 32 % (30-34) 06/01/17 06:22 RDW 20.3 % (13.2-15.2) H 06/01/17 06:22 Plt Count 232 K/mm3 (140-440) 06/01/17 06:22 Lymph % (Auto) 19.0 % (13.4-35.0) 06/01/17 06:22 [place] % (Auto) 7.9 % (0.0-7.3) H 06/01/17 06:22 Eos % (Auto) 1.1 % (0.0-4.3) 06/01/17 06:22 Baso % (Auto) 0.5 % (0.0-1.8) 06/01/17 06:22 Lymph # 1.9 K/mm3 (1.2-5.4) 06/01/17 06:22 [place] # 0.8 K/mm3 (0.0-0.8) 06/01/17 06:22 Eos # 0.1 K/mm3 (0.0-0.4) 06/01/17 06:22 Baso # 0.0 K/mm3 (0.0-0.1) 06/01/17 06:22 Seg Neutrophils % 71.5 % (40.0-70.0) H 06/01/17 06:22 Seg Neutrophils # 7.2 K/mm3 (1.8-7.7) 06/01/17 06:22 PT 13.4 Sec. (12.2-14.9) 06/01/17 07:34 INR 0.97 (0.87-1.13) 06/01/17 07:34 APTT 25.9 Sec. (24.2-36.6) 06/01/17 07:34 Sodium 145 mmol/L (137-145) 06/01/17 06:22 Potassium 3.6 mmol/L (3.6-5.0) 06/01/17 06:22 Chloride 105.3 mmol/L (98-107) 06/01/17 06:22 Carbon Dioxide 28 mmol/L (22-30) 06/01/17 06:22 Anion Gap 15 mmol/L 06/01/17 06:22 BUN 17 mg/dL (7-17) 06/01/17 06:22 Creatinine 1.3 mg/dL (0.7-1.2) H 06/01/17 06:22 Estimated GFR 50 ml/min 06/01/17 06:22 BUN/Creatinine Ratio 13 % 06/01/17 06:22 Glucose 97 mg/dL (65-100) 06/01/17 06:22 POC Glucose 107 (70-105) H 05/31/17 21:51 Hemoglobin A1c 6.3 % (4-6) H 05/31/17 09:44 Calcium 8.5 mg/dL (8.4-10.2) 06/01/17 06:22 Total Bilirubin 0.60 mg/dL (0.1-1.2) 06/01/17 06:22 AST 39 units/L (5-40) 06/01/17 06:22 ALT 18 units/L (7-56) 06/01/17 06:22 Alkaline Phosphatase 121 units/L (35-129) 06/01/17 06:22 Total Creatine Kinase 168 units/L (30-135) H 06/01/17 06:22 CK-MB (CK-2) 8.6 ng/mL (0.0-4.0) H 06/01/17 06:22 CK-MB (CK-2) Rel Index 5.1 (0-4) H 06/01/17 06:22 Troponin T 0.994 ng/mL (0.00-0.029) H* D 06/01/17 06:22 NT-Pro-B Natriuret Pep 2482 pg/mL (0-900) H 05/31/17 09:44 Total Protein 6.4 g/dL (6.3-8.2) 06/01/17 06:22 Albumin 3.1 g/dL (3.9-5) L 06/01/17 06:22 Albumin/Globulin Ratio 0.9 % 06/01/17 06:22 Triglycerides 62 mg/dL (2-149) 05/31/17 09:44 Cholesterol 82 mg/dL (50-199) 05/31/17 09:44 LDL Cholesterol Direct 19 mg/dL (50-130) L 05/31/17 09:44 HDL Cholesterol 51 mg/dL (40-59) 05/31/17 09:44 Cholesterol/HDL Ratio 1.60 % 05/31/17 09:44 <MAXIAISHWARYAKIKA - Last Filed: 06/02/17 00:15> Assessment and Plan Assessment and plan: I saw and evaluated the patient. I agree with the findings and the plan of care as documented in the Nurse Practitioner's~note, with the following corrections and additions. Patient presents with chest pain, diagnosed with NSTEMI. Had cardiac cath today. Hospitalist Physical - Constitutional Vitals: Temp Pulse Resp BP Pulse Ox 98.5 F 90 16 188/122 95 06/01/17 08:54 06/01/17 13:11 06/01/17 08:54 06/01/17 13:11 06/01/17 13:11 Results - Labs CBC & Chem 7: 06/01/17 07:34 06/01/17 06:22 Labs: Laboratory Last Values WBC 10.1 K/mm3 (4.5-11.0) 06/01/17 06:22 RBC 4.48 M/mm3 (3.65-5.03) 06/01/17 06:22 Hgb 10.9 gm/dl (10.1-14.3) 06/01/17 07:34 Hct 34.6 % (30.3-42.9) 06/01/17 07:34 MCV 78 fl (79-97) L 06/01/17 06:22 MCH 25 pg (28-32) L 06/01/17 06:22 MCHC 32 % (30-34) 06/01/17 06:22 RDW 20.3 % (13.2-15.2) H 06/01/17 06:22 Plt Count 230 K/mm3 (140-440) 06/01/17 07:34 Lymph % (Auto) 19.0 % (13.4-35.0) 06/01/17 06:22 [place] % (Auto) 7.9 % (0.0-7.3) H 06/01/17 06:22 Eos % (Auto) 1.1 % (0.0-4.3) 06/01/17 06:22 Baso % (Auto) 0.5 % (0.0-1.8) 06/01/17 06:22 Lymph # 1.9 K/mm3 (1.2-5.4) 06/01/17 06:22 [place] # 0.8 K/mm3 (0.0-0.8) 06/01/17 06:22 Eos # 0.1 K/mm3 (0.0-0.4) 06/01/17 06:22 Baso # 0.0 K/mm3 (0.0-0.1) 06/01/17 06:22 Seg Neutrophils % 71.5 % (40.0-70.0) H 06/01/17 06:22 Seg Neutrophils # 7.2 K/mm3 (1.8-7.7) 06/01/17 06:22 PT 13.4 Sec. (12.2-14.9) 06/01/17 07:34 INR 0.97 (0.87-1.13) 06/01/17 07:34 APTT 25.9 Sec. (24.2-36.6) 06/01/17 07:34 Sodium 145 mmol/L (137-145) 06/01/17 06:22 Potassium 3.6 mmol/L (3.6-5.0) 06/01/17 06:22 Chloride 105.3 mmol/L (98-107) 06/01/17 06:22 Carbon Dioxide 28 mmol/L (22-30) 06/01/17 06:22 Anion Gap 15 mmol/L 06/01/17 06:22 BUN 17 mg/dL (7-17) 06/01/17 06:22 Creatinine 1.3 mg/dL (0.7-1.2) H 06/01/17 06:22 Estimated GFR 50 ml/min 06/01/17 06:22 BUN/Creatinine Ratio 13 % 06/01/17 06:22 Glucose 97 mg/dL (65-100) 06/01/17 06:22 POC Glucose 130 (70-105) H 06/01/17 13:17 Hemoglobin A1c 6.3 % (4-6) H 05/31/17 09:44 Calcium 8.5 mg/dL (8.4-10.2) 06/01/17 06:22 Total Bilirubin 0.60 mg/dL (0.1-1.2) 06/01/17 06:22 AST 39 units/L (5-40) 06/01/17 06:22 ALT 18 units/L (7-56) 06/01/17 06:22 Alkaline Phosphatase 121 units/L (35-129) 06/01/17 06:22 Total Creatine Kinase 168 units/L (30-135) H 06/01/17 06:22 CK-MB (CK-2) 8.6 ng/mL (0.0-4.0) H 06/01/17 06:22 CK-MB (CK-2) Rel Index 5.1 (0-4) H 06/01/17 06:22 Troponin T 0.994 ng/mL (0.00-0.029) H* D 06/01/17 06:22 NT-Pro-B Natriuret Pep 2482 pg/mL (0-900) H 05/31/17 09:44 Total Protein 6.4 g/dL (6.3-8.2) 06/01/17 06:22 Albumin 3.1 g/dL (3.9-5) L 06/01/17 06:22 Albumin/Globulin Ratio 0.9 % 06/01/17 06:22 Triglycerides 62 mg/dL (2-149) 05/31/17 09:44 Cholesterol 82 mg/dL (50-199) 05/31/17 09:44 LDL Cholesterol Direct 19 mg/dL (50-130) L 05/31/17 09:44 HDL Cholesterol 51 mg/dL (40-59) 05/31/17 09:44 Cholesterol/HDL Ratio 1.60 % 05/31/17 09:44
[2017-06-01] MEDS: NOVOLOG SUB-Q SCH ×4 (09:29→22:19)
[2017-06-01] MEDS: PEPCID IV SCH (10:00)
[2017-06-01] MEDS ORDERED: ELIQUIS PO SCH ×2 (10:12→12:00)
[2017-06-01] MEDS ORDERED: NACL 0.9% 500 ML 500 ML ONE (10:39)
[2017-06-01] MEDS ORDERED: HEPARIN/NS 5000 UNIT/500ML(CATH LAB) 1,000 ML IR ONE (10:57)
[2017-06-01] MEDS ORDERED: XYLOCAINE 2% INFILTRATI ONE (10:57)
[2017-06-01] MEDS ORDERED: HEPARIN 10,000 UNITS/10 ML ONE (10:57)
[2017-06-01] MEDS ORDERED: CALAN ONE (10:57)
[2017-06-01] MEDS ORDERED: NITROGLYCERIN SYRINGE 3 ML ONE (10:58)
[2017-06-01] MEDS ORDERED: HEPARIN 10,000 UNITS/10 ML IV ONE (11:00)
[2017-06-01] MEDS: SUBLIMAZE ONE ×4 (11:24→11:35)
[2017-06-01] MEDS: VERSED ONE ×4 (11:24→11:35)
[2017-06-01] MEDS ORDERED: APRESOLINE ONE (11:48)
[2017-06-01] MEDS ORDERED: LOPRESSOR IV ONE (11:48)
--- NOTE | 2017-06-01 11:58 | Consultation ---
History of Present Illness Consult date: 06/01/17 Consult reason: chest pain History of present illness: Patient admitted with chest pain radiating to her back that started this Thursday. BP on admission was 163/120. Troponin elevated. ECG is showing afib which is chronic. A cardiac cath today showed no evidence of CAD - however there is evidence of mid LAD bridging. Normal LVEF. Past History Past Medical History: atrial fib, COPD, diabetes, hypertension Past Surgical History: No surgical history Social history: no significant social history Family history: hypertension Medications and Allergies Allergies Allergy/AdvReac Type Severity Reaction Status Date / Time No Known Allergies Allergy Verified 05/31/17 09:28 Home Medications Medication Instructions Recorded Confirmed Last Taken Type Carvedilol 1 tab PO BID 12/21/13 05/31/17 05/31/17 History Aspirin EC [Aspirin Enteric Coated 81 mg PO QDAY #30 tablet.dr 03/12/1505/31/17 Rx TAB] ISOSORBIDE MONOnitrate [Imdur ER] 30 mg PO DAILY #30 tab.er.24h 03/12/1505/31/17 Rx NIFEdipine XL [Procardia Xl] 60 mg PO QDAY #30 tablet 03/12/15 05/31/17 Rx AtorvaSTATin [Lipitor] 40 mg PO QHS 03/09/17 05/31/17 05/31/17 History metFORMIN [Glucophage] 500 mg PO BID 03/09/17 05/31/17 05/31/17 History Active Meds: Active Medications Acetaminophen (Tylenol) 650 mg PO Q4H PRN PRN Reason: Pain MILD(1-3)/Fever >100.5/SPAULDING Aspirin (Halfprin Ec) 81 mg PO QDAY [facility] Atorvastatin Calcium (Lipitor) 40 mg PO QHS [facility] Last Admin: 05/31/17 22:03 Dose: 40 mg Bisacodyl (Dulcolax) 10 mg [place] QDAY PRN PRN Reason: Constipation unrelieved by MOM Insulin Aspart (Novolog) 0 units SUB-Q ACHS [facility] PRN Reason: Protocol Last Admin: 06/01/17 09:29 Dose: Not Given Magnesium Hydroxide (Milk Of Magnesia) 30 ml PO Q4H PRN PRN Reason: Constipation Metformin HCl (Glucophage) 500 mg PO BIDDIAB LIZBET Morphine Sulfate (Morphine) 2 mg IV Q4H PRN PRN Reason: Pain, Moderate (4-6) Nifedipine (Procardia Xl) 60 mg PO QDAY LIZBET Ondansetron HCl (Zofran) 4 mg IV Q8H PRN PRN Reason: N/V unrelieved by Reglan Oxycodone/Acetaminophen (Percocet 5/325) 1 tab PO Q6H PRN PRN Reason: Pain, Moderate (4-6) Pantoprazole Sodium (Protonix) 40 mg PO DAILY [facility] Review of Systems All systems: negative Physical Examination Vital Signs Temp Pulse Resp BP Pulse Ox 98.4 F 95 H 18 163/120 98 05/31/17 09:28 05/31/17 09:28 05/31/17 09:28 05/31/17 09:28 05/31/17 09:28 General appearance: no acute distress HEENT: Positive: PERRL Neck: Positive: neck supple Cardiac: Positive: Reg Rate and Rhythm Lungs: Positive: Normal Exam Results 06/01/17 07:34 06/01/17 06:22 Cardiac Enzymes 05/31/17 05/31/17 06/01/17 Range/Units 15:26 22:52 06:22 AST 39 (5-40) units/L CK-MB (CK-2) 31.8 H 17.9 H (0.0-4.0) ng/mL 06/01/17 Range/Units 06:22 AST (5-40) units/L CK-MB (CK-2) 8.6 H (0.0-4.0) ng/mL Coagulation 06/01/17 Range/Units 07:34 PT 13.4 (12.2-14.9) Sec. INR 0.97 (0.87-1.13) APTT 25.9 (24.2-36.6) Sec. CBC 06/01/17 06/01/17 Range/Units 06:22 07:34 WBC 10.1 (4.5-11.0) K/mm3 RBC 4.48 (3.65-5.03) M/mm3 Hgb 11.0 10.9 (10.1-14.3) gm/dl Hct 34.7 34.6 (30.3-42.9) % Plt Count 232 230 (140-440) K/mm3 Lymph # 1.9 (1.2-5.4) K/mm3 [place] # 0.8 (0.0-0.8) K/mm3 Eos # 0.1 (0.0-0.4) K/mm3 Baso # 0.0 (0.0-0.1) K/mm3 Comprehensive Metabolic Panel 06/01/17 Range/Units 06:22 Sodium 145 (137-145) mmol/L Potassium 3.6 (3.6-5.0) mmol/L Chloride 105.3 (98-107) mmol/L Carbon Dioxide 28 (22-30) mmol/L BUN 17 (7-17) mg/dL Creatinine 1.3 H (0.7-1.2) mg/dL Glucose 97 (65-100) mg/dL Calcium 8.5 (8.4-10.2) mg/dL AST 39 (5-40) units/L ALT 18 (7-56) units/L Alkaline Phosphatase 121 (35-129) units/L Total Protein 6.4 (6.3-8.2) g/dL Albumin 3.1 L (3.9-5) g/dL EKG interpretations - Telemetry EKG Rhythm: Atrial Fibrillation Assessment and Plan NSTEMI Normal LVEF Angiographically normal coronaries except for mid LAD bridging Systemic Hypertension - uncontrolled Type II DM Permanent atrial fibrillation Refused anticoagulation in the past Recommendations: Change coreg to metoprolol Discontinue Imdur Continue asa Add plavix for 1 year May go home once BP is under control
[2017-06-01] MEDS ORDERED: PROTONIX IV SCH (12:00)
[2017-06-01] MEDS: HALFPRIN EC PO SCH (12:00)
--- NOTE | 2017-06-01 12:15 | Cardiac Catherization Report ---
LEFT HEART CATHETERIZATION INDICATION: Non-ST elevation myocardial infarction. ORDERING PHYSICIAN: Dr. Karen Herr. PROCEDURES PERFORMED: 1. Selective left and right coronary angiography. 2. Left ventriculography. DESCRIPTION OF PROCEDURE: After obtaining written consent, the patient was draped using sterile technique. A 2% lidocaine was injected into the right wrist. A 6-[place] vascular sheath was inserted into the right radial artery. A 6-[place] JL3.5 catheter was used to selectively engage the left coronary artery. A 6-[place] JR4 catheter was used to selectively engage the right coronary artery. A 6-[place] JR4 catheter was used to hand inject left ventriculogram. No complications occurred during the procedure. Hemostasis was achieved at the end of the procedure using manual pressure. SPECIMEN REMOVED: None. ESTIMATED BLOOD LOSS: Minimal. ANESTHESIA: The sedation administered was 2 mg of IV Versed and 100 mcg of IV fentanyl. FINDINGS: HEMODYNAMICS: 1. Aortic pressure 162/120. 2. LV systolic pressure is 160 mmHg. 3. LV end diastolic pressure is 20 mmHg. CARDIAC STRUCTURES: The left ventricle is normal in size with an ejection fraction estimated at 60% with normal wall motion. CORONARY ANATOMY: 1. This is a right dominant circulation. 2. The left main is angiographically normal. 3. The LAD exhibits evidence of mid segment myocardial bridging, otherwise, is angiographically normal. 4. The left circumflex artery is angiographically normal. 5. Right coronary artery is a dominant vessel. It is angiographically normal. IMPRESSION: 1. Evidence of mid LAD bridging, otherwise, angiographically normal coronary circulation. 2. Normal left ventricular size and systolic function. 3. Uncontrolled blood pressure. RECOMMENDATIONS: Medical therapy with aggressive afterload reduction and beta blockade. JOB# [id number] MARIOLA/AMPARO
[2017-06-01] MEDS: PROCARDIA XL PO SCH ×2 (13:00→22:02)
[2017-06-01] MEDS ORDERED: APRESOLINE IV PRN (14:19)
[2017-06-01] MEDS: PLAVIX PO SCH (17:37)
[2017-06-01] MEDS: LOPRESSOR PO SCH ×2 (17:37→22:19)
[2017-06-01] MEDS: GLUCOPHAGE PO SCH ×2 (17:38→17:40)
[2017-06-01] MEDS: PROTONIX PO SCH (17:38)
[2017-06-01] MEDS: IMDUR PO SCH (22:03)
[2017-06-01] MEDS: COREG PO SCH (22:03)
--- NOTE | 2017-06-02 09:34 | Progress Note ---
Assessment and Plan NSTEMI Normal LVEF Angiographically normal coronaries with evidence of mid LAD bridging. Systemic Hypertension Type II DM Permanent atrial fibrillation Refused anticoagulation in the past Recommendations: Continue DAPT with plavix and aspirin, beta blockers and statin therapy. Stable cardiac aparicio. F/U with [facility] in 1-2wks of discharge. Subjective Date of service: 06/02/17 Interval history: Patient has no complaints. Stable Afib on telemetry monitoring. Objective Vital Signs Temp Pulse Pulse Resp BP BP Pulse Ox 06/02/17 09:07 98.1 F 82 20 148/93 98 06/02/17 08:26 85 06/02/17 08:25 85 06/02/17 04:04 98.4 F 82 18 138/92 93 06/02/17 04:00 99 H 06/01/17 23:50 98.1 F 99 H 18 126/85 95 06/01/17 22:00 18 06/01/17 20:02 98.5 F 103 H 18 141/97 96 06/01/17 20:00 72 06/01/17 17:37 170/108 06/01/17 16:51 105 H 170/108 100 06/01/17 13:11 90 188/122 95 06/01/17 12:00 103 H - Physical Examination General: No Apparent Distress HEENT: Positive: PERRL Neck: Positive: trachea midline Cardiac: Positive: irregularly irregular Lungs: Positive: Decreased Breath Sounds Neuro: Positive: Grossly Intact Incision: Cardiac Cath Site (right radial) Extremities: Absent: edema - Imaging and Cardiology EKG: report reviewed (Afib)
[2017-06-02] MEDS: LOPRESSOR PO SCH (10:08)
[2017-06-02] MEDS: PLAVIX PO SCH (10:09)
[2017-06-02] MEDS: HALFPRIN EC PO SCH (10:09)
[2017-06-02] MEDS: GLUCOPHAGE PO SCH (10:09)
[2017-06-02] MEDS: PROCARDIA XL PO SCH (10:11)
[2017-06-02] MEDS: PROTONIX PO SCH (10:11)
[2017-06-02] MEDS: NOVOLOG SUB-Q SCH ×2 (10:41→12:46)
--- NOTE | 2017-06-02 11:10 | Discharge Summary ---
Providers - Providers Date of Admission: 05/31/17 11:09 Date of discharge: 06/02/17 Attending physician: KIKA SEGUNDO 05/31/17 16:07 Consult to Physician [CONS] Routine Consulting Provider: DEMARIO PALENCIA Reason For Exam: Chest pain Place consult to:: [facility] Notified:: a service Phone number called:: [phone] Was contact made?: Yes If yes, spoke with:: luz elena Time called:: 07:33 06/01/17 12:01 Consult to Cardiac Rehabilitation [CONS] Routine Reason For Exam: Cardiac Rehab Evaluation Primary care physician: KIKA VENTURA Hospitalization Condition: Good Hospital course: patient is 66 yo presented with chest pain. Troponin was elevated at 1.7. She was diagnosed with acute NSTEMI. Patient was started n Aspirin, Plavix, Beta blockers, and admitted. 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 Patient had cardiac cath which showed normal coronaries and mild LAD bridging. She improved, chest pain resolved and she was discharged home on 06/02/17 to follow as outpatient. She had permanent atrial fibrillation and had refused anticoagulation. Total tie spent on discharge, 33 mins. Disposition: DC-01 TO HOME OR SELFCARE - Discharge Diagnoses (1) Permanent atrial fibrillation Status: Acute (2) NSTEMI (non-ST elevated myocardial infarction) Status: Acute (3) CAD (coronary artery disease) Status: Chronic Qualifiers: Coronary Disease-Associated Artery/Lesion type: [place] artery [place] vs. transplanted heart: [place] heart (4) HTN (hypertension), benign Status: Acute (5) Diabetes mellitus type 2 in obese Status: Chronic Core Measure Documentation - Palliative Care Palliative Care/ Comfort Measures: Not Applicable - Core Measures Any of the following diagnoses?: acute MA - Acute MA Discharge Requirements Aspirin at discharge: Yes ALEKS/ARB for LVSD if EF <40%: Not Applicable Beta harvey at discharge: Yes Statin for LDL = or >100 mg/dl on DC: Yes Exam - Constitutional Vitals: Temp Pulse Resp BP Pulse Ox 98.1 F 82 20 148/93 98 06/02/17 09:07 06/02/17 09:07 06/02/17 09:07 06/02/17 09:07 06/02/17 09:07 General appearance: Present: no acute distress - Neck Neck: Present: supple - Respiratory Respiratory effort: normal Respiratory: bilateral: CTA - Cardiovascular Rhythm: regular Heart Sounds: Present: S1 & S2 Plan Activity: other Diet: low fat, low cholesterol, low salt, diabetic Additional Instructions: 1.Folow up with PCP in 1 week. 2.Follow up with Dr. Jones in 1 week. 3.No strenous activity until cleared by cardiology Follow up with: [facility] [Other] - 3-5 Days Forms: CardCat PCI D/C Instructions, Discharge Signature Page Prescriptions: Clopidogrel [Plavix] 75 mg PO QDAY #30 tablet Metoprolol [Lopressor TAB] 100 mg PO BID #60 tablet
[2017-06-02 13:30] VITALS: BP 161/98
--- NOTE | 2017-06-05 13:59 | Query- General ---
Charisse Ferris____Katlyn Date:___06/05/17 Bioprocessing Manufacturing Technician/BRYANT: Sushilit Phone#:__[phone] Exercise your independent professional judgment when responding to this query. Questions asked do not imply a particular answer is desired or expected. We greatly appreciate your clarification on this issue. Clinical Documentation States: 66 year old female was admitted on 05/31/17 The Discharge summary (Dr. merino) states " - Discharge Diagnoses (1) Permanent atrial fibrillation (2) NSTEMI (non-ST elevated myocardial infarction) " Clinical Findings Show (include reference to source document): BMI: 42.7 Given the above clinical scenario can you please provide an appropriate diagnosis based on your knowledge of the patient: PHYSICIAN RESPONSE: [ ] Obesity [x ] Morbid obesity [ ] Other (Please specify) [ ] Clinically undeterminable Present on Admission: [x ] Yes (Y) [ ] Clinically undeterminable (W) [ ]No(N) Please also document response in your Progress Notes and/or Discharge Summary and indicate if the condition was present on admission. MTDD
--- NOTE | 2017-06-05 14:04 | Query- General ---
Deasully Ferris____Katlyn Date:___06/05/17 Neurology Professor/CDS:____Rohit Phone#:___[phone] Exercise your independent professional judgment when responding to this query. Questions asked do not imply a particular answer is desired or expected. We greatly appreciate your clarification on this issue. Clinical Documentation States: 66 year old female was admitted on 05/31/17 The Discharge summary (Dr. merino) states " - Discharge Diagnoses (1) Permanent atrial fibrillation (2) NSTEMI (non-ST elevated myocardial infarction) " Clinical Findings Show (include reference to source document): BNP: 2482 Given the above clinical scenario can you please provide an appropriate diagnosis based on your knowledge of the patient: PHYSICIAN RESPONSE: Acuity: [ ] Acute [x ] Chronic [ ] Acute on Chronic Type: [ ] Systolic Heart Failure [x ] Diastolic Heart Failure [ ] Combined Heart Failure [ ] Other(Please specify) Present on Admission: [ x] Yes (Y) [ ] Clinically undeterminable (W) [ ]No(N) Please also document response in your Progress Notes and/or Discharge Summary and indicate if the condition was present on admission. BINDUD
== END 2017-06-02 15:42 | disposition home or self-care (01) | DRG 281 ==
LOC: ED 09:10 → 4A 11:09
PROVIDERS: ADMIT Internal Medicine; ATTEND Internal Medicine
PROC: 4A023N7 Measurement of Cardiac Sampling and Pressure, Left Heart, Percutaneous Approach (ICD-10-PCS; principal; 2017-06-01)
PROC: B2111ZZ Fluoroscopy of Multiple Coronary Arteries using Low Osmolar Contrast (ICD-10-PCS; 2017-06-01)
PROC: B2151ZZ Fluoroscopy of Left Heart using Low Osmolar Contrast (ICD-10-PCS; 2017-06-01)
DX: I21.4 Non-ST elevation (NSTEMI) myocardial infarction (principal); Z68.41 Body mass index [BMI] 40.0-44.9, adult; I50.32 Chronic diastolic (congestive) heart failure; K21.0 Gastro-esophageal reflux disease with esophagitis; I25.10 Atherosclerotic heart disease of native coronary artery without angina pectoris; H40.9 Unspecified glaucoma; E11.9 Type 2 diabetes mellitus without complications; J44.9 Chronic obstructive pulmonary disease, unspecified; I48.2 Chronic atrial fibrillation; I11.0 Hypertensive heart disease with heart failure; Z79.899 Other long term (current) drug therapy; Z79.82 Long term (current) use of aspirin; Z82.49 Family history of ischemic heart disease and other diseases of the circulatory system; E66.01 Morbid (severe) obesity due to excess calories
CPT/HCPCS: 36415; 71020; 80048; 80053; 80061; 82550; 82553; 82962; 83036; 83880; 84484; 85014; 85018; 85025; 85049; 85610; 85730; 93005; 93010; 93458; A9270-GY; C1894; C9113; J0360; J1644; J2250; J3010; J7040; Q9967

== ENCOUNTER 2017-07-30 10:00 | Day surgery (SDC) | payer MEDICARE ==
[2017-07-30] MEDS ORDERED: NACL 0.9% 1000 ML 1,000 ML IV SCH (11:00)
--- NOTE | 2017-07-30 11:09 | Anesthesia Consultation ---
Anesthesia Consult and Med Hx Date of service: 07/30/17 - Airway Anesthetic Teeth Evaluation: Poor ROM Head & Neck: Adequate Mental/Hyoid Distance: Adequate Mallampati Class: Class II Intubation Access Assessment: Good - Pulmonary Exam CTA: Yes - Cardiac Exam Cardiac Exam: RRR - Pre-Operative Health Status ASA Pre-Surgery Classification: ASA3 Proposed Anesthetic Plan: MAC - Pulmonary Hx Smoking: Yes Hx Asthma: No COPD: Yes Hx Pneumonia: No Hx Sleep Apnea: No - Cardiovascular System Hx Hypertension: Yes Hx Coronary Artery Disease: No Hx Heart Attack/AMI: No Hx Angina: No Hx Percutaneous Transluminal Coronary Angioplasty (PTCA): No Hx Cardia Arrhythmia: Yes () Hx Pacemaker: No Hx Internal Defibrillator: No Hx Valvular Heart Disease: No Hx Heart Murmur: No Hx Peripheral Vascular Disease: No - Endocrine Hx Non-Insulin Dependent Diabetes: Yes - Other Systems Hx Cancer: No Hx Obesity: Yes (morbid) - Additional Comments Anesthesia Medical History Comments: Informed consent obtained
--- NOTE | 2017-07-30 11:10 | Anesthesia Day of Surgery ---
Anesthesia Day of Surgery - Day of Surgery Patient Examined: Yes Patient H&P Reviewed: Yes Patient is NPO: Yes Beta Blockers: Yes
[2017-07-30] MEDS ORDERED: DIPRIVAN 10 MG/ML IV ONE ×2 (14:13→14:14)
[2017-07-30] MEDS ORDERED: LOPRESSOR IV ONE (14:26)
[2017-07-30] MEDS ORDERED: WATER FOR IRRIG STERILE ONE (14:34)
[2017-07-30] MEDS ORDERED: WATER FOR IRRIG STERILE IR ONE (14:34)
--- NOTE | 2017-07-30 15:02 | Operative Report ---
Operative Report Operative Report: Date of procedure: 07/30/2017 Procedure: Colonoscopy with Multiple Hot biopsy polypectomy, Hemoclip application Attending physician: Rivera Zhao MD Parts Sales Associate: Rivera Zhao MD Indication: Patient is a 66-year-old female who presents for screening colonoscopy. A colonoscopy service to evaluate patient for colorectal cancer screening.. Consent: Informed consent was obtained after advising the patient and family regarding nature of this procedure, its indications, potential benefits as well as possible complications including but not limited to bleeding perforation and adverse reaction to medication, infection as well as other cardiopulmonary complications. An informed written and verbal consent was then obtained after due opportunity was provided for questions and answers. Monitoring: Patient was monitored continuously with pulse oximetry and electrocardiographic recordings as well as blood pressure recordings. Vital signs remained stable throughout this procedure with no untoward events. Preoperative assessment: Patient was assessed immediately prior to this procedure for capacity to tolerate monitored anesthesia care and moderate sedation as well as general anesthesia. Patient's ASA classification is 2, Mallampati class is 2, Hyomental distance is 3. Instrument: PEAR SPORTSn video colonoscope Medications: Propofol given intravenously in divided doses. For details please refer to anesthesia records. Description of procedure: Patient was placed in the left lateral decubitus position after achieving sedation, a digital rectal examination was performed following which the colonoscope was introduced into the anal verge and advanced to the cecum which was identified by the ileocecal valve, the appendiceal orifice, as well as by the cecal strap and direct transillumination. The colonoscope was subsequently withdrawn with careful inspection of all mucosal surfaces. Patient tolerated this procedure well and was subsequently taken to the recovery room. The following findings were noted. Findings: The colon was mildly tortuous. Patient had a diminutive sessile polyp in the ascending colon, which was removed by hot biopsy polypectomy this however was not retrieved. A Hemoclip was applied over the defect at the polypectomy site There were a few diverticula seen in the sigmoid and descending colon. On the retroflex view at the anal verge, patient had internal hemorrhoids. Impression: Diminutive ascending colon polyp status post hot biopsy polypectomy Mild diverticulosis Internal hemorrhoids. Plan: Repeat colonoscopy in 5 years. Encourage high-fiber diet.
--- NOTE | 2017-07-30 15:02 | Discharge Summary ---
Short Stay Discharge Plan Activity: advance as tolerated Weight Bearing Status: Weight Bear as Tolerated Diet: regular Follow up with: KIKA VENTURA MD [Primary Care Provider] - 7 Days
[2017-07-30 15:21] VITALS: BP 164/105
== END 2017-07-30 10:01 | disposition home or self-care (01) ==
LOC: GIO 10:00
PROVIDERS: ATTEND Internal Medicine Gastroenterology
DX: K63.5 Polyp of colon (principal); K57.30 Diverticulosis of large intestine without perforation or abscess without bleeding; K59.00 Constipation, unspecified; K64.8 Other hemorrhoids; J44.9 Chronic obstructive pulmonary disease, unspecified; I10 Essential (primary) hypertension; I48.91 Unspecified atrial fibrillation; E11.9 Type 2 diabetes mellitus without complications; E66.01 Morbid (severe) obesity due to excess calories; F17.200 Nicotine dependence, unspecified, uncomplicated; Z68.42 Body mass index [BMI] 45.0-49.9, adult; Z79.899 Other long term (current) drug therapy; Z79.82 Long term (current) use of aspirin; Z79.84 Long term (current) use of oral hypoglycemic drugs
CPT/HCPCS: 45384; 82962; J2704; J7030

== ENCOUNTER 2017-10-02 05:22 | Inpatient (IN) | payer MEDICARE ==
[2017-10-02 07:07] LABS: Basophils # (Auto) 0.1 K/mm3 (0.0-0.1); Basophils % (Auto) 0.5 % (0.0-1.8); Eosinophils # (Auto) 0.1 K/mm3 (0.0-0.4); Eosinophils % (Auto) 0.7 % (0.0-4.3); Hematocrit 35.5 % (30.3-42.9); Hemoglobin 11.1 gm/dl (10.1-14.3); Lymphocytes # (Auto) 1.3 K/mm3 (1.2-5.4); Lymphocytes % (Auto) 11.9 % (13.4-35.0); Mean Corpuscular HGB Conc 31 % (30-34); Mean Corpuscular Volume 77 fl (79-97); Monocytes # (Auto) 0.6 K/mm3 (0.0-0.8); Monocytes % (Auto) 5.7 % (0.0-7.3); Platelet Count 272 K/mm3 (140-440); Red Blood Count 4.62 M/mm3 (3.65-5.03); Red Cell Distribution Width 19.7 % (13.2-15.2)
[2017-10-02 07:12] LABS: Mean Corpuscular Hemoglobin 24 pg (28-32)
[2017-10-02 07:17] LABS: INR 0.93 (0.87-1.13); Partial Thromboplastin Time 25.9 Sec. (24.2-36.6)
[2017-10-02 07:21] LABS: BUN/Creatinine Ratio 20; Blood Urea Nitrogen 22 mg/dL (7-17); Calcium 9.2 mg/dL (8.4-10.2); Hemolysis Index 2
--- NOTE | 2017-10-02 07:46 | Cat Scan Report ---
FINAL REPORT EXAM: CT HEAD/BRAIN WO CON HISTORY: neuro deficits < 6hrs or sx present upon awakening TECHNIQUE: CT of the head was performed. No intravenous contrast was administered. PRIORS: None. FINDINGS: There is an old right basal ganglia lacunar infarct. There are moderate ischemic changes in the white matter. There is no evidence of intracranial hemorrhage. There is no edema, mass effect or midline shift. There are no abnormal extra-axial fluid collections. The ventricles are appropriate for brain volume. There is no skull fracture seen. The visualized aspects of the sinuses are clear. IMPRESSION: There is no acute intracranial abnormality identified.
[2017-10-02 07:57] LABS: HDL Cholesterol 49 mg/dL (40-59); LDL Cholesterol,Direct 14 mg/dL (50-130)
--- NOTE | 2017-10-02 10:42 | Emergency Department Report ---
ED Neuro Deficit HPI - General Chief Complaint: Neuro Symptoms/Deficit Stated Complaint: LEFT HAND NO MICE RAISER Time Seen by Provider: 10/02/17 10:30 Source: patient Mode of arrival: Stretcher Limitations: No Limitations - History of Present Illness Initial Comments: Patient is a 67-year-old male presents to emergency room with left-sided weakness, slurred speech, left hand numbness that that all started at 845 last night. Patient states she's having trouble speaking and struggled to get out of bed due to that her left-sided weakness. Patient denies chest pain shortness of breath. Patient denies fever and chills. Patient has multiple comorbidities. . Patient denies visual changes and headache. Patient denies diaphoresis. -: Sudden Location: speech, left face, dysarthria, left arm, left leg Presenting Symptoms: Present: Weak/Paralyzed One Side, Unable to Speak Clearly History of same: No Place: home Severity: severe Quality: weak, numb Improves With: none Worsens With: none On Anticoagulants: Yes Context: sudden onset Associated Symptoms: confusion, malise, weakness. denies: chest pain, cough, diaphoresis, fever/chills, headaches, loss of appetite, nausea/vomiting, vertigo , seizures, shortness of breath, syncope Treatments Prior to Arrival: none - Related Data Home Medications: Home Medications Medication Instructions Recorded Confirmed Last Taken AtorvaSTATin [Lipitor] 40 mg PO QHS 03/09/17 10/02/17 10/01/17 Carvedilol [Coreg] 25 mg PO BID 10/02/17 10/02/17 10/01/17 Previous Rx's Medication Instructions Recorded Last Taken Type NIFEdipine XL [Procardia Xl] 60 mg PO QDAY #30 tablet 03/12/15 10/01/17 Rx Allergies/Adverse Reactions: Allergies Allergy/AdvReac Type Severity Reaction Status Date / Time No Known Allergies Allergy Verified 05/31/17 09:28 ED Review of Systems ROS: Stated complaint: LEFT HAND NO MICE RAISER Other details as noted in HPI Constitutional: denies: chills, fever Eyes: denies: eye pain, eye discharge, vision change ENT: denies: ear pain, throat pain Respiratory: denies: cough, shortness of breath, wheezing Cardiovascular: denies: chest pain, palpitations Endocrine: no symptoms reported Gastrointestinal: denies: abdominal pain, nausea, diarrhea Genitourinary: denies: urgency, dysuria, discharge Musculoskeletal: denies: back pain, joint swelling, arthralgia Skin: denies: rash, lesions Neurological: denies: headache, weakness, paresthesias Psychiatric: denies: anxiety, depression Hematological/Lymphatic: denies: easy bleeding, easy bruising ED Past Medical Hx - Past Medical History Previous Medical History?: Yes Hx Hypertension: Yes Hx Heart Attack/AMI: No Hx Congestive Heart Failure: Yes Hx Diabetes: Yes Hx Deep Vein Thrombosis: No Hx Pulmonary Embolism: No Hx Asthma: No Hx COPD: Yes Hx Tuberculosis: No Additional medical history: Atrial Fib. - Surgical History Past Surgical History?: No Hx Coronary Stent: No Hx Pacemaker: No Hx Internal Defibrillator: No - Family History Family history: hypertension - Social History Smoking Status: Never Smoker Substance Use Type: None - Medications Home Medications: Home Medications Medication Instructions Recorded Confirmed Last Taken Type NIFEdipine XL [Procardia Xl] 60 mg PO QDAY #30 tablet 03/12/15 10/02/17 Rx AtorvaSTATin [Lipitor] 40 mg PO QHS 03/09/17 10/02/17 10/01/17 History Carvedilol [Coreg] 25 mg PO BID 10/02/17 10/02/17 10/01/17 History ED Neuro Physical Exam - General Limitations: No Limitations General appearance: alert, in no apparent distress Suspected Stroke: Yes - Head Head exam: Present: atraumatic, normocephalic - Eye Eye exam: Present: normal appearance - ENT ENT exam: Present: mucous membranes moist - Neck Neck exam: Present: normal inspection - Respiratory Respiratory exam: Present: normal lung sounds bilaterally. Absent: respiratory distress - Cardiovascular Cardiovascular Exam: Present: regular rate, normal rhythm. Absent: systolic murmur, diastolic murmur, rubs, gallop - GI/Abdominal GI/Abdominal exam: Present: soft, normal bowel sounds - Extremities Exam Extremities exam: Present: normal inspection - Back Exam Back exam: Present: normal inspection - Neurological Exam Neurological exam: Present: alert, oriented X3 - NIHSS Assessment Interval: Baseline 1a. Level of Consciousness: alert 1b. LOC Questions: answers correctly 1c. LOC Commands: performs tasks correctly 2. Best Gaze: normal 3. Visual: no visual loss 4. Facial Palsy: normal symmetrical movement 5b. Motor Arm Right: no drift 5a. Motor Arm Left: no drift 6a. Motor Leg Left: no drift 6b. Motor Leg Right: no drift 7. Limb Ataxia: absent 8. Sensory: normal 9. Best Language: mild/moderate aphasia 10. Dysarthria: mild/moderate dysarthria 11. Extinction/Inattention: no abnormality Total Score: 2 Stroke Severity: Minor Stroke - Psychiatric Psychiatric exam: Present: normal affect, normal mood - Skin Skin exam: Present: warm, dry, intact, normal color. Absent: rash ED Course Vital Signs 10/02/17 10/02/17 10/02/17 05:56 06:20 07:30 Temperature 98.9 F 98.9 F Pulse Rate 100 H 95 H Respiratory 18 18 16 Rate Blood Pressure 171/107 171/107 Blood Pressure [Left] O2 Sat by Pulse 93 95 100 Oximetry 10/02/17 10/02/17 10/02/17 08:00 09:00 11:57 Temperature Pulse Rate 100 H 98 H 102 H Respiratory 30 H 22 16 Rate Blood Pressure 166/117 168/108 Blood Pressure 174/118 [Left] O2 Sat by Pulse 98 72 L 96 Oximetry 10/02/17 15:10 Temperature Pulse Rate 74 Respiratory 16 Rate Blood Pressure Blood Pressure 166/127 [Left] O2 Sat by Pulse 95 Oximetry - Reevaluation(s) Reevaluation #1: Discussed plan of care with patient. Patient agreed to be admitted. All results discussed with patient. 10/02/17 11:40 Reevaluation #2: Discussed plan of care with daughter who is at bedside. Hospitalist consulted for admission. Hospitalist agreed to admit. 10/02/17 12:34 - Lab Data Result diagrams: 10/02/17 06:52 10/02/17 06:52 Lab Results 10/02/17 10/02/17 10/02/17 Range/Units 06:36 06:52 06:52 WBC 11.2 H (4.5-11.0) K/mm3 RBC 4.62 (3.65-5.03) M/mm3 Hgb 11.1 (10.1-14.3) gm/dl Hct 35.5 (30.3-42.9) % MCV 77 L (79-97) fl MCH 24 L (28-32) pg MCHC 31 (30-34) % RDW 19.7 H (13.2-15.2) % Plt Count 272 (140-440) K/mm3 Lymph % (Auto) 11.9 L (13.4-35.0) % Mckean % (Auto) 5.7 (0.0-7.3) % Eos % (Auto) 0.7 (0.0-4.3) % Baso % (Auto) 0.5 (0.0-1.8) % Lymph # 1.3 (1.2-5.4) K/mm3 Mckean # 0.6 (0.0-0.8) K/mm3 Eos # 0.1 (0.0-0.4) K/mm3 Baso # 0.1 (0.0-0.1) K/mm3 Seg Neutrophils % 81.2 H (40.0-70.0) % Seg Neutrophils # 9.1 H (1.8-7.7) K/mm3 PT 12.9 (12.2-14.9) Sec. INR 0.93 (0.87-1.13) APTT 25.9 (24.2-36.6) Sec. Thrombin Time (15.1-19.6) Sec. Sodium (137-145) mmol/L Potassium (3.6-5.0) mmol/L Chloride (98-107) mmol/L Carbon Dioxide (22-30) mmol/L Anion Gap mmol/L BUN (7-17) mg/dL Creatinine (0.7-1.2) mg/dL Estimated GFR ml/min BUN/Creatinine Ratio % Glucose (65-100) mg/dL POC Glucose 117 H (70-105) Calcium (8.4-10.2) mg/dL Troponin T (0.00-0.029) ng/mL Triglycerides (2-149) mg/dL Cholesterol (50-199) mg/dL LDL Cholesterol Direct (50-130) mg/dL HDL Cholesterol (40-59) mg/dL Cholesterol/HDL Ratio % 10/02/17 10/02/17 Range/Units 06:52 06:52 WBC (4.5-11.0) K/mm3 RBC (3.65-5.03) M/mm3 Hgb (10.1-14.3) gm/dl Hct (30.3-42.9) % MCV (79-97) fl MCH (28-32) pg MCHC (30-34) % RDW (13.2-15.2) % Plt Count (140-440) K/mm3 Lymph % (Auto) (13.4-35.0) % Mckean % (Auto) (0.0-7.3) % Eos % (Auto) (0.0-4.3) % Baso % (Auto) (0.0-1.8) % Lymph # (1.2-5.4) K/mm3 Mckean # (0.0-0.8) K/mm3 Eos # (0.0-0.4) K/mm3 Baso # (0.0-0.1) K/mm3 Seg Neutrophils % (40.0-70.0) % Seg Neutrophils # (1.8-7.7) K/mm3 PT (12.2-14.9) Sec. INR (0.87-1.13) APTT (24.2-36.6) Sec. Thrombin Time 16.0 (15.1-19.6) Sec. Sodium 143 (137-145) mmol/L Potassium 3.6 (3.6-5.0) mmol/L Chloride 103.8 (98-107) mmol/L Carbon Dioxide 29 (22-30) mmol/L Anion Gap 14 mmol/L BUN 22 H (7-17) mg/dL Creatinine 1.1 (0.7-1.2) mg/dL Estimated GFR > 60 ml/min BUN/Creatinine Ratio 20 % Glucose 117 H (65-100) mg/dL POC Glucose (70-105) Calcium 9.2 (8.4-10.2) mg/dL Troponin T 0.031 H (0.00-0.029) ng/mL Triglycerides 61 (2-149) mg/dL Cholesterol 64 (50-199) mg/dL LDL Cholesterol Direct 14 L (50-130) mg/dL HDL Cholesterol 49 (40-59) mg/dL Cholesterol/HDL Ratio 1.30 % - EKG Data -: EKG Interpreted by Me Rate: tachycardia Interpretation: other (A. fib) - Radiology Data Radiology results: report reviewed - Medical Decision Making Patient is a 67-year-old female admitted for weakness but most likely secondary to a CVA. Hospitalist agreed to admit. - Differential Diagnosis CVA. Dehydration. Weakness. Hyperglycemia. Hypoglycemia. Critical care attestation.: If time is entered above; I have spent that time in minutes in the direct care of this critically ill patient, excluding procedure time. ED Disposition Clinical Impression: Left-sided weakness, Slurred speech, Elevated troponin HTN (hypertension) Qualifiers: Hypertension type: essential hypertension Qualified Code(s): I10 - Essential ( primary) hypertension Disposition: OP ADMIT IP TO THIS HOSP Is pt being admited?: Yes Does the pt Need Aspirin: No Condition: Serious Time of Disposition: 12:33
--- NOTE | 2017-10-02 12:19 | History and Physical Report ---
History of Present Illness Chief complaint: Im weak on my left side, and im talking funny History of present illness: 67 YO Female with MO, Atrial Fib, HTN, CHF, DM, COPD, Obesity Hypoventillation Syndrome presents to ED for evaluation. Pt states that she experienced an episode of left-sided weakness, slurred speech, and left hand numbness that began at 5hrs. Pt states that she went to bed and awoke with the same symptoms as well as difficulty speaking, and inability to get out of baed and ambulate due to Left sided weakness. EMS was notified and upon arrival, the patient was found to have symptoms consistent with acute CVA. Code Stroke Called , and patient was transported to [facility] for further care and evaluation. Pt seen and evaluated in ED and found to have symptoms of CVA, but is outside therapeutic window for TPA. Pt denies fever, chills, CP, Palpitations, NVD, Syncope, Seizures, Trauma, BRBPR, Leg Swelling, Calf Pain, Prolonged travel/ immobility, Individual/Family History of DVT/PE. Pt admitted to telemetry. Past History Past Medical History: atrial fib, COPD, diabetes, heart failure, hypertension, other (MO, Atrial Fib, HTN, CHF, DM, COPD) Past Surgical History: No surgical history, Other (reviewed) Social history: single. denies: smoking, alcohol abuse, prescription drug abuse Family history: hypertension Medications and Allergies Allergies Allergy/AdvReac Type Severity Reaction Status Date / Time No Known Allergies Allergy Verified 05/31/17 09:28 Home Medications Medication Instructions Recorded Confirmed Last Taken Type NIFEdipine XL [Procardia Xl] 60 mg PO QDAY #30 tablet 03/12/15 10/02/17 Rx AtorvaSTATin [Lipitor] 40 mg PO QHS 03/09/17 10/02/17 10/01/17 History Carvedilol [Coreg] 25 mg PO BID 10/02/17 10/02/17 10/01/17 History Review of Systems Constitutional: no weight loss, no weight gain, no fever, no chills Ears, nose, mouth and throat: no ear pain, no ear discharge, no tinnitis, no decreased hearing, no nose pain, no nasal congestion, no nasal discharge Breasts: no change in shape, no swelling, no mass Cardiovascular: no chest pain, no orthopnea, no palpitations, no rapid/ irregular heart beat, no edema, no syncope, no lightheadedness Respiratory: no cough, no cough with sputum, no excessive sputum, no hemoptysis , no shortness of breath, no dyspnea on exertion Gastrointestinal: no abdominal pain, no nausea, no vomiting, no diarrhea, no constipation, no change in bowel habits Genitourinary Female: no dysmenorrhea, no pelvic pain, no flank pain, no menorrhagia Rectal: no pain, no incontinence, no bleeding Musculoskeletal: no neck stiffness, no neck pain, no shooting arm pain, no arm numbness/tingling, no low back pain, no shooting leg pain, no leg numbness/ tingling Integumentary: no rash, no pruritis, no redness, no sores, no wounds Neurological: no head injury, no transient paralysis, no paralysis, no weakness , no parathesias, no numbness, no tingling Psychiatric: no anxiety, no memory loss, no change in sleep habits, no sleep disturbances, no insomnia, no hypersomnia, no change in appetite Endocrine: no cold intolerance, no heat intolerance, no polyphagia, no excessive thirst, no polydipsia, no polyuria, no nocturia Hematologic/Lymphatic: no easy bruising, no easy bleeding, no lymphadenopathy, no lymphedema Allergic/Immunologic: no urticaria, no allergic rhinitis, no wheezing, no persistent infections, no anaphylaxis Exam - Constitutional Vitals: Temp Pulse Resp BP Pulse Ox 98.9 F 102 H 16 174/118 96 10/02/17 06:20 10/02/17 11:57 10/02/17 11:57 10/02/17 11:57 10/02/17 11:57 General appearance: Present: no acute distress, well-nourished, obese - EENT Eyes: Present: PERRL ENT: hearing intact, clear oral mucosa - Neck Neck: Present: supple, normal ROM - Respiratory Respiratory effort: normal Respiratory: bilateral: CTA - Cardiovascular Heart Sounds: Present: S1 & S2. Absent: rub, click - Extremities Extremities: pulses symmetrical, No edema Peripheral Pulses: within normal limits - Abdominal General gastrointestinal: Present: soft, non-tender, non-distended, normal bowel sounds Female genitourinary: Present: normal - Integumentary Integumentary: Present: clear, warm, dry - Musculoskeletal Musculoskeletal: left sided weakness - Psychiatric Psychiatric: appropriate mood/affect, intact judgment & insight - Neurologic Neurologic: CNII-XII intact, moves all extremities, no gait normal Results - Labs CBC & Chem 7: 10/02/17 06:52 10/02/17 06:52 Labs: Abnormal lab results 10/02/17 10/02/17 10/02/17 Range/Units 06:36 06:52 06:52 WBC 11.2 H (4.5-11.0) K/mm3 MCV 77 L (79-97) fl MCH 24 L (28-32) pg RDW 19.7 H (13.2-15.2) % Lymph % (Auto) 11.9 L (13.4-35.0) % Seg Neutrophils % 81.2 H (40.0-70.0) % Seg Neutrophils # 9.1 H (1.8-7.7) K/mm3 BUN 22 H (7-17) mg/dL Glucose 117 H (65-100) mg/dL POC Glucose 117 H (70-105) Troponin T 0.031 H (0.00-0.029) ng/mL LDL Cholesterol Direct 14 L (50-130) mg/dL Assessment and Plan - Patient Problems (1) CVA (cerebral vascular accident) Current Visit: Yes Status: Acute Qualifiers: Precerebral and cerebral artery: middle cerebral artery Laterality of affected vessel: right Plan to address problem: Stroke Protocol: CT head, MRI Brain, MRA Brain, Echo, Carotid Doppler, BLE Duplex, Antiplatelet therapy, lipid panel, PT/OT/ Speech therapy, Aspiration precautions, fall precautions, seizure precautions. (2) Left hemiparesis Current Visit: Yes Status: Acute Plan to address problem: PT consulted, secondary to acute CVA (3) CHF (congestive heart failure) Current Visit: Yes Status: Acute Qualifiers: Heart failure type: diastolic Heart failure chronicity: acute on chronic Qualified Code(s): I50.33 - Acute on chronic diastolic (congestive) heart failure Plan to address problem: Strict I/O, Afterload reduction, Echo, supportive care, remote telemetry, daily weight, (4) Diabetes Current Visit: Yes Status: Acute Plan to address problem: Consistent carbohydrate diet, accu check, insulin (5) DVT prophylaxis Current Visit: No Status: Acute Plan to address problem: SCD to BLE while in bed
[2017-10-02] MEDS ORDERED: ZOFRAN IV PRN (12:23)
[2017-10-02] MEDS ORDERED: PHENERGAN PR PRN (12:23)
[2017-10-02] MEDS ORDERED: TYLENOL PO PRN (12:23)
[2017-10-02] MEDS ORDERED: DULCOLAX PR PRN (12:23)
[2017-10-02] MEDS ORDERED: REGLAN PO PRN (12:23)
[2017-10-02] MEDS ORDERED: SODIUM CHLORIDE FLUSH SYRINGE 10 ML IV PRN (12:23)
[2017-10-02] MEDS ORDERED: LOPRESSOR IV ONE (12:32)
--- NOTE | 2017-10-02 15:15 | Magnetic Resonance Report ---
FINAL REPORT EXAM: MR BRAIN WO CON HISTORY: stroke TECHNIQUE: MRI of the brain was performed. Images include: Sagittal T1, axial diffusion, axial ADC map, axial gradient, axial T2, axial FLAIR, axial T1, coronal FLAIR PRIORS: None. FINDINGS: There are very small focal areas of diffusion restriction located in the right parietal lobe and involving insular cortex. This is compatible with small acute infarcts. There are old lacunar infarcts in the right basal ganglia. There are signal changes in the white matter bilaterally which likely reflects moderate microvascular ischemic disease. For there is more pronounced signal change in the right frontal region which may be a small old infarct/gliosis. There is no edema, mass effect or midline shift. IMPRESSION: There are small focal areas of diffusion restriction in right parietal region/insular cortex. This is compatible with small foci of acute ischemia/infarction.
--- NOTE | 2017-10-02 15:17 | Magnetic Resonance Report ---
FINAL REPORT EXAM: MR MRA HEAD WO CON HISTORY: stroke TECHNIQUE: MR angiography of the brain performed. 3D [id number] axial images and reformatted angiographic images were obtained. PRIORS: None. FINDINGS: The anterior and posterior cerebral circulations are maintained. [place]ore Knott is maintain. There is no intravascular filling defect. There is no cerebral aneurysm seen. IMPRESSION: There is no significant abnormality identified.
[2017-10-02] MEDS ORDERED: APRESOLINE IV PRN (21:57)
[2017-10-03] MEDS: ASPIRIN PO SCH ×2 (09:18→15:57)
--- NOTE | 2017-10-03 14:03 | Progress Note ---
Assessment and Plan /Acute CVA (cerebral vascular accident) Initiated Stroke Protocol: CT head, MRI Brain, MRA Brain, Echo, Carotid Doppler , BLE Duplex, Antiplatelet therapy, lipid panel, PT/OT/ Speech therapy, Aspiration precautions, fall precautions, seizure precautions. MRI brain showed acute right parietal lobe CVA consult neurology /Left UE hemiparesis PT consulted, secondary to acute CVA /CHF (congestive heart failure) Strict I/O, follow Echo, remote telemetry, daily weight, resume home meds BB, ACEI, aspirin, statin /chronic atrial fibrillation - patient refused anticoagulation in the past - counselled to start back on anticoagulation as she now developed acute CVA - will also consult cardiology for further recommendation / Diabetes Consistent carbohydrate diet, accu check, insulin with SSI for now /leukocytosis, likely stress induced / DVT prophylaxis SCD to BLE while in bed Brief history: 67 YO Female with MO, Atrial Fib not on anticoagulation, HTN, CHF, DM, COPD, Obesity Hypoventillation Syndrome presents to ED for evaluation. Pt stated that she experienced an episode of left-sided weakness, slurred speech, and left hand numbness that began at 5hrs. Pt states that she went to bed and awoke with the same symptoms as well as difficulty speaking, and inability to get out of baed and ambulate due to Left sided weakness. EMS was notified and upon arrival, the patient was found to have symptoms consistent with acute CVA. Code Stroke Called, and patient was transported to [facility] for further care and evaluation. No TPA given as she was out of window. Radiological test: CT head: no acute process MRI brain: right parietal/ingula acute CVA Hospitalist Physical exam: GENERAL: well-developed obese AAF lying on bed appeared to be in no discomfort. HEENT: Normocephalic. Atraumatic. No conjunctival congestion or icterus. Patient has moist mucous membranes. NECK: Supple. Trachea midline. CHEST/LUNGS: Clear to auscultated bilaterally, breathing nonlabored. No wheezes crackles or rhonchi. HEART/CARDIOVASCULAR: Regular in rate and rhythm. S1 and S2 positive. ABDOMEN: Abdomen is soft, nontender. Patient has normal bowel sounds. SKIN: There is no rash. Warm and dry. NEURO: LUE weakness. Follows command. MUSCULOSKELETAL: No joint effusion or tenderness. EXTRIMITY: No edema, no cyanosis or clubbing. PSYCH: Cooperative. Subjective Date of service: 10/03/17 Interval history: Pt seen and examined still has LUE weakness denies any chest pain or SOB had PT eval recommended outpt follow up Objective - Constitutional Vitals: Vital Signs - 12hr 10/03/17 10/03/17 10/03/17 04:39 08:06 11:25 Temperature 98.2 F 98.0 F 98.0 F Pulse Rate 106 H 72 107 H Respiratory 18 20 30 H Rate Blood Pressure 167/108 171/129 141/87 O2 Sat by Pulse 96 100 97 Oximetry - Labs CBC & Chem 7: 10/02/17 06:52 10/02/17 06:52 Labs: Abnormal lab results 10/02/17 Range/Units 13:25 NT-Pro-B Natriuret Pep 1744 H (0-900) pg/mL
[2017-10-03] MEDS: PROCARDIA XL PO SCH (15:57)
[2017-10-03] MEDS: COREG PO SCH ×2 (15:57→21:45)
--- NOTE | 2017-10-04 02:34 | Cat Scan Report ---
FINAL REPORT PROCEDURE: CT HEAD/BRAIN WO CON TECHNIQUE: Computerized tomography of the head was performed without contrast material. HISTORY: left side weakness COMPARISON: 10/02/2017 FINDINGS: Skull and scalp: Normal. Paranasal sinuses: Normal. Ventricles and subarachnoid spaces: There is central and cortical atrophy. There is no hydrocephalus or asymmetry.. Cerebrum: No evidence of hemorrhage, acute infarction or mass. There is chronic deep white matter ischemic gliosis. There is an old lacunar infarct defect in the right basal ganglia. Cerebellum and brainstem: No evidence of hemorrhage, acute infarction or mass. There is an old lacunar infarct defect in the right hemisphere of the cerebellum. Vasculature: Normal. Comments: None. IMPRESSION: There is central and cortical atrophy. There is no hydrocephalus or asymmetry.. There is no hemorrhage, edema, mass, mass effect or midline shift. There is chronic deep white matter ischemic gliosis. There is an old lacunar infarct defect in the right basal ganglia. There is an old lacunar infarct defect in the right hemisphere of the cerebellum.
[2017-10-04] MEDS: COREG PO SCH ×2 (09:45→22:54)
[2017-10-04] MEDS: ASPIRIN PO SCH (09:45)
[2017-10-04] MEDS: PROCARDIA XL PO SCH (09:46)
--- NOTE | 2017-10-04 09:50 | Consultation ---
History of Present Illness Consult date: 10/04/17 History of present illness: I have dictated full note went over all imaging studies pesonally this is vessel disease intracranial... advise BP control asa 81 mg statin high dose clinically stable will need rehab Past History Past Medical History: atrial fib, COPD, diabetes, heart failure, hypertension, other (MO, Atrial Fib, HTN, CHF, DM, COPD) Past Surgical History: No surgical history, Other (reviewed) Social history: single. denies: smoking, alcohol abuse, prescription drug abuse Family history: hypertension Medications and Allergies Allergies Allergy/AdvReac Type Severity Reaction Status Date / Time No Known Allergies Allergy Verified 05/31/17 09:28 Home Medications Medication Instructions Recorded Confirmed Last Taken Type NIFEdipine XL [Procardia Xl] 60 mg PO QDAY #30 tablet 03/12/15 10/02/17 Rx AtorvaSTATin [Lipitor] 40 mg PO QHS 03/09/17 10/02/17 10/01/17 History Carvedilol [Coreg] 25 mg PO BID 10/02/17 10/02/17 10/01/17 History Active Meds: Active Medications Acetaminophen (Tylenol) 650 mg PO Q4H PRN PRN Reason: Pain, Mild (1-3) Last Admin: 10/03/17 20:10 Dose: 650 mg Aspirin (Aspirin) 325 mg PO QDAY [facility] Last Admin: 10/04/17 09:45 Dose: 325 mg Atorvastatin Calcium (Lipitor) 80 mg PO QHS [facility] Last Admin: 10/03/17 21:46 Dose: 80 mg Bisacodyl (Dulcolax) 10 mg [place] QDAY PRN PRN Reason: Constipation Carvedilol (Coreg) 25 mg PO BID [facility] Last Admin: 10/04/17 09:45 Dose: 25 mg Hydralazine HCl (Apresoline) 5 mg IV Q6H PRN PRN Reason: Blood Pressure Last Admin: 10/03/17 08:16 Dose: 5 mg Magnesium Hydroxide (Milk Of Magnesia) 30 ml PO Q4H PRN PRN Reason: Constipation Metoclopramide HCl (Reglan) 10 mg PO Q6H PRN PRN Reason: Nausea And Vomiting Nifedipine (Procardia Xl) 60 mg PO QDAY [facility] Last Admin: 10/04/17 09:46 Dose: 60 mg Ondansetron HCl (Zofran) 4 mg IV Q8H PRN PRN Reason: N/V unrelieved by Reglan Promethazine HCl (Phenergan) 25 mg [place] Q6H PRN PRN Reason: Nausea And Vomiting Sodium Chloride (Sodium Chloride Flush Syringe 10 Ml) 10 ml IV PRN PRN PRN Reason: LINE FLUSH Physical Examination - Vital Signs Vital Signs: Vital Signs Temp Pulse Resp BP Pulse Ox 98.9 F 100 H 18 171/107 93 10/02/17 05:56 10/02/17 05:56 10/02/17 05:56 10/02/17 05:56 10/02/17 05:56 - Assessment Assessment Interval: Baseline - Level of Consciousness 1a. Level of Consciousness: alert - LOC Questions 1b. LOC Questions: answers correctly - LOC Command 1c. LOC Commands: performs tasks correctly - Best Gaze 2. Best Gaze: normal - Visual 3. Visual: no visual loss - Facial Palsy 4. Facial Palsy: normal symmetrical movement - Motor Arm 5b. Motor Arm Right: no drift - Motor Leg 6a. Motor Leg Left: no drift - Limb Ataxia 7. Limb Ataxia: absent - Sensory 8. Sensory: normal - Best Language 9. Best Language: mild/moderate aphasia - Dysarthria 10. Dysarthria: mild/moderate dysarthria - Extinction and Inattention 11. Extinction/Inattention: no abnormality Results - Laboratory Findings CBC and BMP: 10/02/17 06:52 10/02/17 06:52 Abnormal Lab Findings: Abnormal Labs 10/02/17 10/02/17 10/02/17 06:36 06:52 06:52 WBC 11.2 H MCV 77 L MCH 24 L RDW 19.7 H Lymph % (Auto) 11.9 L Seg Neutrophils % 81.2 H Seg Neutrophils # 9.1 H BUN 22 H Glucose 117 H POC Glucose 117 H Troponin T 0.031 H NT-Pro-B Natriuret Pep LDL Cholesterol Direct 14 L 10/02/17 13:25 WBC MCV MCH RDW Lymph % (Auto) Seg Neutrophils % Seg Neutrophils # BUN Glucose POC Glucose Troponin T NT-Pro-B Natriuret Pep 1744 H LDL Cholesterol Direct
--- NOTE | 2017-10-04 10:42 | Consultation ---
HISTORY OF PRESENT ILLNESS: This is a 66-year-old black female that presents to [facility] with the abrupt onset of numbness in her left arm and left leg. The patient on presentation denies symptoms such as this in the past. Symptoms came on rather acutely and she was having trouble speaking, getting out of bed. She denies any falls or seizures. There was left arm numbness and weakness of the left side. She has a prior medical history of hypertension, takes Procardia, verapamil. On presentation in the Emergency Room, she had weakness of her left arm and left leg. The patient's review of her testing at this point shows that she has an ejection fraction on her echocardiogram of 50-55%. There is marked dilation of the left atrium as well as the right ventricle. Patent foramen ovale was not visualized. The patient has a normal ventricular chamber size. Septal hypertrophy was present consistent with a diagnosis of hypertension. MRI of the brain unremarkable. The patient has had MRI, which shows a small ischemic infarct in the insular cortex of the right cerebral hemisphere. Since admission, the patient's condition has gradually improved. Most recent CAT scan obtained on the patient shows an old lacunar infarct in the right basal ganglia and chronic deep white matter gliosis, otherwise no significant change. PHYSICAL EXAMINATION: On my examination, she is alert, appropriate. Neck supple. Speech clear. She has weakness in the left arm only. Her current blood pressure is 138/95, temperature is 98 degrees, pulse rate is 113, respiratory rate is 20. Neck is supple. Ocular movements are full. No visual field cuts are noted. Motor and sensory examination outside of the left arm are normal. She is fully aware of her weakness, does not have any symptoms suggestive of a visual field cut or right parietal lobe syndrome. IMPRESSION: Small vessel disease, left cerebral hemisphere and insular cortex. I do not think there is any evidence of any surgical lesion or need for endovascular catheter treatment given the normal MRA of the brain. Pending a report at this point is carotid ultrasound. Blood pressure control, lowering of glucose. Low-dose aspirin therapy is of course recommended. I do not see anything on the echocardiogram that would make me think that full dose anticoagulation is clinically warranted at this point. Outpatient physical therapy will be recommended. The diagnosis explained to the patient, went over her clinical findings with her as to my diagnosis and recommended treatment. JOB# [id number] CLAUDINE/AMPARO
--- NOTE | 2017-10-04 11:16 | Consultation ---
History of Present Illness Consult date: 10/04/17 Consult reason: atrial fibrillation History of present illness: 67 year old female presenting with acute right parietal CVA. She is known to have chronic afib and has refused anticoagulation in the past Past History Past Medical History: atrial fib, COPD, diabetes, heart failure, hypertension, other (MO, Atrial Fib, HTN, CHF, DM, COPD) Past Surgical History: No surgical history, Other (reviewed) Social history: single. denies: smoking, alcohol abuse, prescription drug abuse Family history: hypertension Medications and Allergies Allergies Allergy/AdvReac Type Severity Reaction Status Date / Time No Known Allergies Allergy Verified 05/31/17 09:28 Home Medications Medication Instructions Recorded Confirmed Last Taken Type NIFEdipine XL [Procardia Xl] 60 mg PO QDAY #30 tablet 03/12/15 10/02/17 Rx AtorvaSTATin [Lipitor] 40 mg PO QHS 03/09/17 10/02/17 10/01/17 History Carvedilol [Coreg] 25 mg PO BID 10/02/17 10/02/17 10/01/17 History Active Meds: Active Medications Acetaminophen (Tylenol) 650 mg PO Q4H PRN PRN Reason: Pain, Mild (1-3) Last Admin: 10/03/17 20:10 Dose: 650 mg Aspirin (Aspirin) 325 mg PO QDAY [facility] Last Admin: 10/04/17 09:45 Dose: 325 mg Atorvastatin Calcium (Lipitor) 80 mg PO QHS [facility] Last Admin: 10/03/17 21:46 Dose: 80 mg Bisacodyl (Dulcolax) 10 mg [place] QDAY PRN PRN Reason: Constipation Carvedilol (Coreg) 25 mg PO BID [facility] Last Admin: 10/04/17 09:45 Dose: 25 mg Hydralazine HCl (Apresoline) 5 mg IV Q6H PRN PRN Reason: Blood Pressure Last Admin: 10/03/17 08:16 Dose: 5 mg Magnesium Hydroxide (Milk Of Magnesia) 30 ml PO Q4H PRN PRN Reason: Constipation Metoclopramide HCl (Reglan) 10 mg PO Q6H PRN PRN Reason: Nausea And Vomiting Nifedipine (Procardia Xl) 60 mg PO QDAY [facility] Last Admin: 10/04/17 09:46 Dose: 60 mg Ondansetron HCl (Zofran) 4 mg IV Q8H PRN PRN Reason: N/V unrelieved by Reglan Promethazine HCl (Phenergan) 25 mg [place] Q6H PRN PRN Reason: Nausea And Vomiting Sodium Chloride (Sodium Chloride Flush Syringe 10 Ml) 10 ml IV PRN PRN PRN Reason: LINE FLUSH Review of Systems All systems: negative Physical Examination Vital Signs Temp Pulse Resp BP Pulse Ox 98.9 F 100 H 18 171/107 93 10/02/17 05:56 10/02/17 05:56 10/02/17 05:56 10/02/17 05:56 10/02/17 05:56 General appearance: no acute distress HEENT: Positive: PERRL Neck: Positive: neck supple Cardiac: Positive: irregularly irregular Lungs: Positive: Normal Exam Abdomen: Positive: Soft Results 10/02/17 06:52 10/02/17 06:52 - EKG Interpretation EKG shows: atrial fibrillation Assessment and Plan Acute right parietal CVA LVEF 50-55% by echo No PFO or ASD by bubble study Systemic Hypertension Type II DM Permanent atrial fibrillation Refused anticoagulation in the past Recent cardiac work-up: Normal LVEF Angiographically normal coronaries with evidence of mid LAD bridging. Recommendations: Intiate anticoagulation when safe per neurology Patient is agreeable now to start OAC No further cardiac work-up is needed
--- NOTE | 2017-10-04 14:27 | Progress Note ---
Assessment and Plan /Acute CVA (cerebral vascular accident) Initiated Stroke Protocol: CT head, MRI Brain, MRA Brain, Echo, Carotid Doppler , BLE Duplex, Antiplatelet therapy, lipid panel, PT/OT/ Speech therapy, Aspiration precautions, fall precautions, seizure precautions. MRI brain showed acute right parietal lobe CVA consult neurology /Left UE hemiparesis PT consulted, secondary to acute CVA /CHF (congestive heart failure) Strict I/O, follow Echo, remote telemetry, daily weight, resume home meds BB, ACEI, aspirin, statin /chronic atrial fibrillation - patient refused anticoagulation in the past - counselled to start back on anticoagulation as she now developed acute CVA - Cardiology following, will follow further recommendation / Diabetes Consistent carbohydrate diet, accu check, insulin with SSI for now /leukocytosis, likely stress induced / DVT prophylaxis SCD to BLE while in bed Brief history: 67 YO Female with MO, Atrial Fib not on anticoagulation, HTN, CHF, DM, COPD, Obesity Hypoventillation Syndrome presents to ED for evaluation. Pt stated that she experienced an episode of left-sided weakness, slurred speech, and left hand numbness that began at 5hrs. Pt states that she went to bed and awoke with the same symptoms as well as difficulty speaking, and inability to get out of baed and ambulate due to Left sided weakness. EMS was notified and upon arrival, the patient was found to have symptoms consistent with acute CVA. Code Stroke Called, and patient was transported to [facility] for further care and evaluation. No TPA given as she was out of window. Radiological test: CT head: no acute process MRI brain: right parietal/ingula acute CVA Hospitalist Physical exam: GENERAL: well-developed obese AAF lying on bed appeared to be in no discomfort. HEENT: Normocephalic. Atraumatic. No conjunctival congestion or icterus. Patient has moist mucous membranes. NECK: Supple. Trachea midline. CHEST/LUNGS: Clear to auscultated bilaterally, breathing nonlabored. No wheezes crackles or rhonchi. HEART/CARDIOVASCULAR: Regular in rate and rhythm. S1 and S2 positive. ABDOMEN: Abdomen is soft, nontender. Patient has normal bowel sounds. SKIN: There is no rash. Warm and dry. NEURO: LUE weakness. Follows command. MUSCULOSKELETAL: No joint effusion or tenderness. EXTRIMITY: No edema, no cyanosis or clubbing. PSYCH: Cooperative. Subjective Date of service: 10/04/17 Interval history: Pt seen and examined still has LUE weakness denies any chest pain or SOB Objective - Constitutional Vitals: Vital Signs - 12hr 10/04/17 10/04/17 10/04/17 04:11 08:05 09:45 Temperature 98.7 F 98.3 F Pulse Rate 101 H 113 H 113 H Respiratory 18 20 Rate Blood Pressure 139/99 138/95 138/98 O2 Sat by Pulse 95 99 Oximetry 10/04/17 10:00 Temperature Pulse Rate 105 H Respiratory 20 Rate Blood Pressure O2 Sat by Pulse Oximetry - Labs CBC & Chem 7: 10/02/17 06:52 10/02/17 06:52 Labs: Abnormal lab results 10/04/17 Range/Units 12:51 POC Glucose 144 H (70-105)
[2017-10-04] MEDS: MAG-OX PO SCH (17:00)
[2017-10-04] MEDS: RESTORIL PO SCH (22:55)
[2017-10-05] MEDS: COREG PO SCH ×2 (10:01→21:39)
[2017-10-05] MEDS: MAG-OX PO SCH (10:01)
[2017-10-05] MEDS: ASPIRIN PO SCH (10:01)
--- NOTE | 2017-10-05 11:10 | Progress Note ---
Assessment and Plan Acute right parietal CVA LVEF 50-55% by echo No PFO or ASD by bubble study Systemic Hypertension Type II DM Permanent atrial fibrillation Refused anticoagulation in the past but now agreeable to start. [facility] 05/2017: Angiographically normal coronaries with evidence of mid LAD bridging. Subjective Date of service: 10/05/17 Interval history: Patient has no complaints. Afib with well controlled ventricular rate on telemetry. Objective Vital Signs Temp Pulse Resp BP BP Pulse Ox 10/05/17 07:47 98.1 F 100 H 18 117/85 98 10/05/17 06:00 88 10/05/17 05:21 98.0 F 98 H 153/104 96 10/04/17 23:45 97.7 F 101 H 20 124/73 93 10/04/17 23:41 110 H 95 10/04/17 22:56 90 10/04/17 22:54 92 H 124/82 10/04/17 22:00 100 10/04/17 20:00 98.4 F 92 H 18 124/82 96 10/04/17 15:36 32.1 F L 90 20 124/86 95 - Physical Examination General: No Apparent Distress HEENT: Positive: PERRL Cardiac: Positive: Reg Rate and Rhythm Lungs: Positive: Decreased Breath Sounds Neuro: Positive: Grossly Intact, Weakness
--- NOTE | 2017-10-05 12:07 | Discharge Summary ---
Providers - Providers Date of Admission: 10/02/17 12:23 Date of discharge: 10/05/17 Attending physician: JOAQUINA QUEVEDO 10/02/17 12:23 Occupational Therapy Evaluate and Treat [CONS] Routine Comment: Reason For Exam: Neuro deficits Physical Therapy Evaluation and Treat [CONS] Routine Comment: Reason For Exam: Neuro deficits 10/02/17 12:24 Speech Therapy Evaluation and Treat [CONS] Routine Reason For Exam: swallow eval 10/02/17 13:42 Speech Therapy Evaluation and Treat [CONS] Routine Reason For Exam: drooling 10/03/17 11:15 Consult to Physician [CONS] Routine Comment: Consulting Provider: CHELSEY ARAUJO Physician Instructions: Reason For Exam: possible cva 10/03/17 14:33 Consult to Physician [CONS] Routine Comment: Consulting Provider: ROSALINA WU Physician Instructions: Reason For Exam: atrial fib with new cva Primary care physician: KIKA VENTURA Hospitalization Condition: Serious Hospital course: Brief history: 67 YO Female with MO, Atrial Fib not on anticoagulation, HTN, CHF, DM, COPD, Obesity Hypoventillation Syndrome presents to ED for evaluation. Pt stated that she experienced an episode of left-sided weakness, slurred speech, and left hand numbness that began at 5hrs. Pt states that she went to bed and awoke with the same symptoms as well as difficulty speaking, and inability to get out of baed and ambulate due to Left sided weakness. EMS was notified and upon arrival, the patient was found to have symptoms consistent with acute CVA. Code Stroke Called, and patient was transported to [facility] for further care and evaluation. No TPA given as she was out of window. Discharge diagnosis and management: /Acute CVA (cerebral vascular accident) Initiated Stroke Protocol: CT head, MRI Brain, MRA Brain, Echo, Carotid Doppler , BLE Duplex, Antiplatelet therapy, lipid panel, PT/OT/ Speech therapy, Aspiration precautions, fall precautions, seizure precautions. MRI brain showed acute right parietal lobe CVA consulted neurology PT recommended outpt/ physical therapy /Left UE hemiparesis PT consulted, secondary to acute CVA /Chronic atrial fibrillation - patient refused anticoagulation in the past - counselled to start back on anticoagulation as she now developed acute CVA, she agreed - Cardiology was consulted, 2d echo revealed preserve EF and no diastolic dysfunction, patient does not have CHF - cardiac cath a year ago showed normal coronaries - patient could be start on eliquis after a week from the acute CVA episode per neurology recommendation / Diabetes Consistent carbohydrate diet, accu check, insulin with SSI for now /leukocytosis, likely stress induced / DVT prophylaxis SCD to BLE while in bed Radiological test: CT head: no acute process MRI brain: right parietal/ingula acute CVA 2d echo: preserved EF Carotid doppler: <50% stenosis b/l Hospitalist Physical exam: GENERAL: well-developed obese AAF lying on bed appeared to be in no discomfort. HEENT: Normocephalic. Atraumatic. No conjunctival congestion or icterus. Patient has moist mucous membranes. NECK: Supple. Trachea midline. CHEST/LUNGS: Clear to auscultated bilaterally, breathing nonlabored. No wheezes crackles or rhonchi. HEART/CARDIOVASCULAR: Regular in rate and rhythm. S1 and S2 positive. ABDOMEN: Abdomen is soft, nontender. Patient has normal bowel sounds. SKIN: There is no rash. Warm and dry. NEURO: LUE weakness. Follows command. MUSCULOSKELETAL: No joint effusion or tenderness. EXTRIMITY: No edema, no cyanosis or clubbing. PSYCH: Cooperative. Disposition: [id number]/[place]-06 HOME UNDER HOME [facility] Time spent for discharge: 32 minutes Core Measure Documentation - Palliative Care Palliative Care/ Comfort Measures: Not Applicable - Core Measures Any of the following diagnoses?: stroke - Stroke Discharge Requirements Statin for LDL = or >70 mg/dl on DC: Yes Anticoag for atrial fib/atrial flutter: Yes Antithrombotic for ischemic stroke: Yes Exam - Constitutional Vitals: Temp Pulse Resp BP Pulse Ox 98.1 F 100 H 18 117/85 98 10/05/17 07:47 10/05/17 07:47 10/05/17 07:47 10/05/17 07:47 10/05/17 07:47 Plan Activity: advance as tolerated Weight Bearing Status: Weight Bear as Tolerated Diet: low fat, low salt Prescriptions: Apixaban [Eliquis] 5 mg PO BID #60 tablet Aspirin EC [Aspirin Enteric Coated TAB] 81 mg PO QDAY #7 tablet.
--- NOTE | 2017-10-05 15:11 | Progress Note ---
Assessment and Plan /Acute CVA (cerebral vascular accident) Initiated Stroke Protocol: CT head, MRI Brain, MRA Brain, Echo, Carotid Doppler , BLE Duplex, Antiplatelet therapy, lipid panel, PT/OT/ Speech therapy, Aspiration precautions, fall precautions, seizure precautions. MRI brain showed acute right parietal lobe CVA Pt does complaints worsening of symptom on the same side since , repeat CT on same day showed no acute change - will order MRI again Will reconsult neurology /Left UE hemiparesis PT following, secondary to acute CVA /Chronic atrial fibrillation - patient refused anticoagulation in the past - counselled to start back on anticoagulation as she now developed acute CVA, she agreed - Cardiology was consulted, 2d echo revealed preserve EF and no diastolic dysfunction, patient does not have CHF - cardiac cath a year ago showed normal coronaries - patient could be start on eliquis atleast a week from the acute CVA episode per neurology recommendation, now will wait for repeat MRI result / Diabetes Consistent carbohydrate diet, accu check, insulin with SSI for now /HTN, BP controlled with current meds /leukocytosis, likely stress induced / DVT prophylaxis SCD to BLE while in bed Brief history: 67 YO Female with h/o Atrial Fib not on anticoagulation, HTN, DM, presents to ED for evaluation. Pt stated that she experienced an episode of left-sided weakness, slurred speech, and left hand numbness that began at 5hrs. Pt states that she went to bed and awoke with the same symptoms as well as difficulty speaking, and inability to get out of bed and ambulate due to Left sided weakness. EMS was notified and upon arrival, the patient was found to have symptoms consistent with acute CVA. Code Stroke Called, and patient was transported to [facility] for further care and evaluation. No TPA given as she was out of window. Radiological test: CT head: no acute process MRI brain: right parietal/ingula acute CVA Hospitalist Physical exam: GENERAL: well-developed obese AAF lying on bed appeared to be in no discomfort. HEENT: Normocephalic. Atraumatic. No conjunctival congestion or icterus. Patient has moist mucous membranes. NECK: Supple. Trachea midline. CHEST/LUNGS: Clear to auscultated bilaterally, breathing nonlabored. No wheezes crackles or rhonchi. HEART/CARDIOVASCULAR: Regular in rate and rhythm. S1 and S2 positive. ABDOMEN: Abdomen is soft, nontender. Patient has normal bowel sounds. SKIN: There is no rash. Warm and dry. NEURO: LUE weakness. Follows command. MUSCULOSKELETAL: No joint effusion or tenderness. EXTRIMITY: No edema, no cyanosis or clubbing. PSYCH: Cooperative. Subjective Date of service: 10/05/17 Interval history: Pt seen and examined still has LUE weakness and states it is worse than before since 10/04 night Updated daughter in details at bedside, answered all questions at best of my knowledge denies any chest pain or SOB PT re-evaluated her and recommended acute rehab Objective - Constitutional Vitals: Vital Signs - 12hr 10/05/17 10/05/17 10/05/17 05:21 06:00 07:47 Temperature 98.0 F 98.1 F Pulse Rate 98 H 88 100 H Respiratory 18 Rate Blood Pressure 153/104 117/85 O2 Sat by Pulse 96 98 Oximetry - Labs CBC & Chem 7: 10/05/17 17:51 10/05/17 17:51 Labs: Abnormal lab results 10/04/17 10/04/17 10/05/17 Range/Units 15:42 21:43 05:53 POC Glucose 155 H 121 H 107 H (70-105) 10/05/17 Range/Units 12:40 POC Glucose 116 H (70-105)
[2017-10-05 18:25] LABS: Hematocrit 37.3 % (30.3-42.9); Hemoglobin 11.6 gm/dl (10.1-14.3); Mean Corpuscular HGB Conc 31 % (30-34); Mean Corpuscular Volume 78 fl (79-97); Platelet Count 268 K/mm3 (140-440); Red Blood Count 4.78 M/mm3 (3.65-5.03); Red Cell Distribution Width 19.6 % (13.2-15.2)
[2017-10-05 18:28] LABS: Mean Corpuscular Hemoglobin 24 pg (28-32)
--- NOTE | 2017-10-05 18:40 | Magnetic Resonance Report ---
FINAL REPORT EXAM: MR BRAIN WO CON HISTORY: progression of cva TECHNIQUE: Multiplanar MRI of the brain. No contrast administered. PRIORS: 02 October 2017. FINDINGS: Brain volume is normal for age. Small foci of restricted diffusion noted previously in the right temporoparietal region has increased in size, affecting larger portion of the temporoparietal operculum and measures approximately 2.8 x 1.6 cm in maximal cross-sectional diameter. Patchy, but diffuse foci of T2 and FLAIR bright signal in the periventricular and subcortical white matter are nonspecific, but may relate to chronic small vessel ischemic change. Probable small and old lacunar infarct changes in the right basal ganglia and right cerebellar hemisphere again noted. No parenchymal mass, mass-effect, hemorrhage, midline shift or hydrocephalus. No pathologic extra-axial fluid collection. No pineal region or sellar masses. No cerebellar tonsillar herniation. IMPRESSION: 1. Findings compatible with evolution and increased size of acute ischemic change and infarct in right temporoparietal operculum, as reported above. 2. Chronic ischemic changes suspected.
[2017-10-05 18:42] LABS: Calcium 9.3 mg/dL (8.4-10.2)
[2017-10-05] MEDS: PROCARDIA XL PO SCH (19:04)
[2017-10-05] MEDS: RESTORIL PO SCH (21:39)
[2017-10-06 06:42] LABS: Calcium 9.1 mg/dL (8.4-10.2)
--- NOTE | 2017-10-06 09:51 | Progress Note ---
Assessment and Plan Acute CVA LVEF 50-55% by echo No PFO or ASD by bubble study Systemic Hypertension Type II DM Permanent atrial fibrillation Refused anticoagulation in the past but now agreeable to start. [facility] 05/2017: Angiographically normal coronaries with evidence of mid LAD bridging. Subjective Date of service: 10/06/17 Interval history: Patient has no cardiac complaints. Afib with well controlled ventricular rate on telemetry. Objective Vital Signs Temp Pulse Resp BP BP Pulse Ox 10/06/17 08:26 98.4 F 94 H 20 138/100 97 10/06/17 06:01 98.2 F 101 H 18 141/68 94 10/06/17 05:49 90 10/05/17 23:59 97.6 F 102 H 18 104/95 96 10/05/17 23:44 140/105 10/05/17 21:39 101 H 153/98 10/05/17 21:35 87 10/05/17 19:52 98.9 F 101 H 18 153/98 94 10/05/17 19:22 99 H 153/98 95 10/05/17 18:59 98.4 F 20 141/95 10/05/17 14:59 98.0 F 92 H 18 154/107 95 10/05/17 11:39 98.2 F 76 18 129/87 96 - Physical Examination General: No Apparent Distress HEENT: Positive: PERRL Cardiac: Positive: irregularly irregular Lungs: Positive: Decreased Breath Sounds Neuro: Positive: Weakness - Labs and Meds CBC 10/05/17 Range/Units 17:51 WBC 9.4 (4.5-11.0) K/mm3 RBC 4.78 (3.65-5.03) M/mm3 Hgb 11.6 (10.1-14.3) gm/dl Hct 37.3 (30.3-42.9) % Plt Count 268 (140-440) K/mm3 Comprehensive Metabolic Panel 10/05/17 10/06/17 Range/Units 17:51 05:25 Sodium 146 H 148 H (137-145) mmol/L Potassium 4.0 3.7 (3.6-5.0) mmol/L Chloride 104.9 107.2 H (98-107) mmol/L Carbon Dioxide 30 28 (22-30) mmol/L BUN 30 H 30 H (7-17) mg/dL Creatinine 1.5 H 1.5 H (0.7-1.2) mg/dL Glucose 104 H 102 H (65-100) mg/dL Calcium 9.3 9.1 (8.4-10.2) mg/dL
--- NOTE | 2017-10-06 11:15 | Progress Note ---
Assessment and Plan /Acute CVA (cerebral vascular accident) Initiated Stroke Protocol: CT head, MRI Brain, MRA Brain, Echo, Carotid Doppler , BLE Duplex, Antiplatelet therapy, lipid panel, PT/OT/ Speech therapy, Aspiration precautions, fall precautions, seizure precautions. MRI brain showed acute right parietal lobe CVA Pt does complaints worsening of symptom on the same side since , repeat CT on same day showed no acute change - repeat MRI showed progression of the CVA, reconsulted neurology /Left sided hemiparesis PT following, secondary to acute CVA /Chronic atrial fibrillation - patient refused anticoagulation in the past - counselled to start back on anticoagulation as she now developed acute CVA, she agreed - Cardiology was consulted, 2d echo revealed preserve EF and no diastolic dysfunction, patient does not have CHF - cardiac cath a year ago showed normal coronaries - patient could be start on eliquis when clears by neurology (need to wait atleast 18 more days per neuro) / Diabetes Consistent carbohydrate diet, accu check, insulin with SSI for now /HTN, BP controlled with current meds /Hypernatremia with PERCY - will monitor, cont on iv fluid, likely from dehydration /leukocytosis, likely stress induced / DVT prophylaxis SCD to BLE while in bed Brief history: 67 YO Female with h/o Atrial Fib not on anticoagulation, HTN, DM, presents to ED for evaluation. Pt stated that she experienced an episode of left-sided weakness, slurred speech, and left hand numbness that began at 2044hrs. Pt states that she went to bed and awoke with the same symptoms as well as difficulty speaking, and inability to get out of bed and ambulate due to Left sided weakness. EMS was notified and upon arrival, the patient was found to have symptoms consistent with acute CVA. Code Stroke Called, and patient was transported to [facility] for further care and evaluation. No TPA given as she was out of window. Radiological test: CT head: no acute process MRI brain: right parietal/ingula acute CVA MRI brain 10/05 - progression of acute CVA now involving right paraitotemporal area. Hospitalist Physical exam: GENERAL: well-developed obese AAF lying on bed appeared to be in no discomfort. HEENT: Normocephalic. Atraumatic. No conjunctival congestion or icterus. Patient has moist mucous membranes. NECK: Supple. Trachea midline. CHEST/LUNGS: Clear to auscultated bilaterally, breathing nonlabored. No wheezes crackles or rhonchi. HEART/CARDIOVASCULAR: Regular in rate and rhythm. S1 and S2 positive. ABDOMEN: Abdomen is soft, nontender. Patient has normal bowel sounds. SKIN: There is no rash. Warm and dry. NEURO: LUE and LLE weakness UE >LE. Follows command. MUSCULOSKELETAL: No joint effusion or tenderness. EXTRIMITY: No edema, no cyanosis or clubbing. PSYCH: Cooperative. Subjective Date of service: 10/06/17 Interval history: Pt seen and examined still has LUE weakness and states it is worse than before since 10/04 night, also c/o LLE weakness Updated daughter in details at bedside, answered all questions at best of my knowledge denies any chest pain or SOB PT re-evaluated her and recommended acute rehab Objective - Constitutional Vitals: Vital Signs - 12hr 10/05/17 10/05/17 10/06/17 23:44 23:59 05:49 Temperature 97.6 F Pulse Rate 102 H 90 Respiratory 18 Rate Blood Pressure 140/105 Blood Pressure 104/95 [Left] O2 Sat by Pulse 96 Oximetry 10/06/17 10/06/17 06:01 08:26 Temperature 98.2 F 98.4 F Pulse Rate 101 H 94 H Respiratory 18 20 Rate Blood Pressure 138/100 Blood Pressure 141/68 [Left] O2 Sat by Pulse 94 97 Oximetry - Labs CBC & Chem 7: 10/05/17 17:51 10/06/17 05:25 Labs: Abnormal lab results 10/05/17 10/05/17 10/05/17 Range/Units 12:40 17:51 17:51 MCV 78 L (79-97) fl MCH 24 L (28-32) pg RDW 19.6 H (13.2-15.2) % Sodium 146 H (137-145) mmol/L Chloride (98-107) mmol/L BUN 30 H (7-17) mg/dL Creatinine 1.5 H (0.7-1.2) mg/dL Glucose 104 H (65-100) mg/dL POC Glucose 116 H (70-105) 10/05/17 10/06/17 10/06/17 Range/Units 21:04 05:25 05:30 MCV (79-97) fl MCH (28-32) pg RDW (13.2-15.2) % Sodium 148 H (137-145) mmol/L Chloride 107.2 H (98-107) mmol/L BUN 30 H (7-17) mg/dL Creatinine 1.5 H (0.7-1.2) mg/dL Glucose 102 H (65-100) mg/dL POC Glucose 114 H 109 H (70-105)
[2017-10-06] MEDS: PROCARDIA XL PO SCH (11:46)
[2017-10-06] MEDS: MAG-OX PO SCH ×2 (11:51→13:18)
[2017-10-06] MEDS: ASPIRIN PO SCH (11:51)
[2017-10-06] MEDS: COREG PO SCH ×2 (11:51→22:33)
--- NOTE | 2017-10-06 17:29 | Progress Note ---
Subjective Date of service: 10/06/17 Interval history: wsent over the MRA and it is normal therefore seems likely the strioke was related to a fif the secondMRi ias in fact changed from first but uin the same area there is no second stroke only extenstion from first since in the same vascular territory,,,, we have to wait 18 days or so before starting queenie spoke to Sue Adams via phone Objective - Vital Sign Vital Signs - 12hr 10/06/17 10/06/17 10/06/17 05:49 06:01 08:26 Temperature 98.2 F 98.4 F Pulse Rate 90 101 H 94 H Respiratory 18 20 Rate Blood Pressure 138/100 Blood Pressure 141/68 [Left] O2 Sat by Pulse 94 97 Oximetry 10/06/17 10/06/17 11:40 16:50 Temperature 98.2 F 98.7 F Pulse Rate 93 H 89 Respiratory 20 20 Rate Blood Pressure 150/87 135/88 Blood Pressure [Left] O2 Sat by Pulse 96 92 Oximetry - Laboratory Findings CBC and BMP: 10/05/17 17:51 10/06/17 05:25 Abnormal Lab Findings: Abnormal Labs 10/02/17 10/02/17 10/02/17 06:36 06:52 06:52 WBC 11.2 H MCV 77 L MCH 24 L RDW 19.7 H Lymph % (Auto) 11.9 L Seg Neutrophils % 81.2 H Seg Neutrophils # 9.1 H Sodium Chloride BUN 22 H Creatinine Glucose 117 H POC Glucose 117 H Troponin T 0.031 H NT-Pro-B Natriuret Pep LDL Cholesterol Direct 14 L 10/02/17 10/04/17 10/04/17 13:25 12:51 15:42 WBC MCV MCH RDW Lymph % (Auto) Seg Neutrophils % Seg Neutrophils # Sodium Chloride BUN Creatinine Glucose POC Glucose 144 H 155 H Troponin T NT-Pro-B Natriuret Pep 1744 H LDL Cholesterol Direct 10/04/17 10/05/17 10/05/17 21:43 05:53 12:40 WBC MCV MCH RDW Lymph % (Auto) Seg Neutrophils % Seg Neutrophils # Sodium Chloride BUN Creatinine Glucose POC Glucose 121 H 107 H 116 H Troponin T NT-Pro-B Natriuret Pep LDL Cholesterol Direct 10/05/17 10/05/17 10/05/17 17:51 17:51 21:04 WBC MCV 78 L MCH 24 L RDW 19.6 H Lymph % (Auto) Seg Neutrophils % Seg Neutrophils # Sodium 146 H Chloride BUN 30 H Creatinine 1.5 H Glucose 104 H POC Glucose 114 H Troponin T NT-Pro-B Natriuret Pep LDL Cholesterol Direct 10/06/17 10/06/17 10/06/17 05:25 05:30 11:46 WBC MCV MCH RDW Lymph % (Auto) Seg Neutrophils % Seg Neutrophils # Sodium 148 H Chloride 107.2 H BUN 30 H Creatinine 1.5 H Glucose 102 H POC Glucose 109 H 106 H Troponin T NT-Pro-B Natriuret Pep LDL Cholesterol Direct 10/06/17 16:57 WBC MCV MCH RDW Lymph % (Auto) Seg Neutrophils % Seg Neutrophils # Sodium Chloride BUN Creatinine Glucose POC Glucose 122 H Troponin T NT-Pro-B Natriuret Pep LDL Cholesterol Direct
[2017-10-06] MEDS: NACL 0.45% 1000 ML 1,000 ML IV SCH (22:32)
[2017-10-06] MEDS: RESTORIL PO SCH (22:33)
[2017-10-07 06:31] LABS: Calcium 8.6 mg/dL (8.4-10.2)
--- NOTE | 2017-10-07 10:57 | Progress Note ---
Assessment and Plan Acute CVA LVEF 50-55% by echo No PFO or ASD by bubble study Systemic Hypertension Type II DM Permanent atrial fibrillation Refused anticoagulation in the past but now agreeable to start. [facility] 05/2017: Angiographically normal coronaries with evidence of mid LAD bridging. Recommendations: Start anticoagulation when cleared by neurology No further cardiac work-up is needed We will sign off Subjective Date of service: 10/07/17 Principal diagnosis: CVA Interval history: No events overnight Objective Vital Signs Temp Pulse Resp BP BP Pulse Ox 10/07/17 01:24 79 10/07/17 00:48 97.6 F 84 18 110/64 97 10/06/17 20:18 98.9 F 87 18 120/77 95 10/06/17 16:50 98.7 F 89 20 135/88 92 10/06/17 14:00 86 10/06/17 11:40 98.2 F 93 H 20 150/87 96 - Physical Examination General: No Apparent Distress HEENT: Positive: PERRL Neck: Positive: neck supple Cardiac: Positive: irregularly irregular Lungs: Positive: Normal Exam Neuro: Positive: Weakness Abdomen: Positive: Soft - Labs and Meds Comprehensive Metabolic Panel 10/07/17 Range/Units 05:12 Sodium 145 (137-145) mmol/L Potassium 3.4 L (3.6-5.0) mmol/L Chloride 104.0 (98-107) mmol/L Carbon Dioxide 28 (22-30) mmol/L BUN 29 H (7-17) mg/dL Creatinine 1.5 H (0.7-1.2) mg/dL Glucose 95 (65-100) mg/dL Calcium 8.6 (8.4-10.2) mg/dL
[2017-10-07] MEDS: COREG PO SCH ×2 (12:23→21:21)
[2017-10-07] MEDS: ASPIRIN PO SCH (12:23)
[2017-10-07] MEDS: MAG-OX PO SCH (12:24)
[2017-10-07] MEDS: PROCARDIA XL PO SCH (12:25)
--- NOTE | 2017-10-07 14:02 | Ultrasound Report ---
ULTRASOUND RENAL BILATERAL HISTORY: Chronic kidney disease. TECHNIQUE: transabdominal ultrasound with color Doppler interrogation. COMPARISON: 09/22/16. FINDINGS: The right kidney measures 10.0 x 5.2 x 5.3cm. Right renal cortex: 0.9cm. The left kidney measures 10.0 x 5.3 x 5.7cm. Left renal cortex: 1.0cm. The kidneys are normal size, contour and position. There is increased renal parenchymal echotexture bilaterally. Corticomedullary differentiation is preserved. No evidence for cystic disease, mass, nephrolithiasis, hydronephrosis or perinephric fluid. The views of the bladder and the region of the ureters appear normal. IMPRESSION: Renal parenchymal disease. No significant change since 09/22/16.
--- NOTE | 2017-10-07 16:31 | Progress Note ---
Assessment and Plan Assessment and plan: 67 YO Female with h/o Atrial Fib not on anticoagulation, HTN, DM, presents to ED for evaluation. Pt stated that she experienced an episode of left-sided weakness, slurred speech, and left hand numbness that began at 5hrs. Pt states that she went to bed and awoke with the same symptoms as well as difficulty speaking, and inability to get out of bed and ambulate due to Left sided weakness. EMS was notified and upon arrival, the patient was found to have symptoms consistent with acute CVA. Code Stroke Called, and patient was transported to [facility] for further care and evaluation. No TPA given as she was out of window. Acute CVA (cerebral vascular accident) - MRI brain showed acute right parietal lobe CVA - Repeat CT showed progression of stroke in the right temporal parietal area - Neurology reconsult and recommended to start and increase after 18 days Left sided hemiparesis - PT was consulted and recommended subacute rehabilitation Chronic atrial fibrillation - Cardiology was consulted and on workup was negative - We'll restart and increase after 18 days Diabetes Consistent carbohydrate diet, accu check, insulin with SSI for now HTN, BP controlled with current meds PERCY - will monitor, cont on iv fluid, likely from dehydration DVT prophylaxis SCD to BLE while in bed Disposition Plan: pending to have placement History Interval history: Patient was seen and evaluated this morning, patient still have left-sided weakness. Nausea complaints. Hospitalist Physical - Physical exam Narrative exam: Not in cardiopulmonary distress. The patient appeared well nourished and normally developed. Vital signs as documented. Head exam is unremarkable. No scleral icterus . Neck is without jugular venous distension, thyromegaly, or carotid bruits. Lungs are clear to auscultation. Cardiac exam reveals regular rate and Rhythm. Abdominal exam reveals normal bowel sounds. Extremities are nonedematous and both femoral and pedal pulses are normal. 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 Left upper and lower extremity weakness. - Constitutional Vitals: Temp Pulse Resp BP Pulse Ox 98.2 F 99 H 20 150/100 96 10/07/17 12:10 10/07/17 12:10 10/07/17 12:10 10/07/17 12:10 10/07/17 12:10 General appearance: Present: no acute distress Results - Labs CBC & Chem 7: 10/05/17 17:51 10/07/17 05:12 Labs: Laboratory Last Values WBC 9.4 K/mm3 (4.5-11.0) 10/05/17 17:51 RBC 4.78 M/mm3 (3.65-5.03) 10/05/17 17:51 Hgb 11.6 gm/dl (10.1-14.3) 10/05/17 17:51 Hct 37.3 % (30.3-42.9) 10/05/17 17:51 MCV 78 fl (79-97) L 10/05/17 17:51 MCH 24 pg (28-32) L 10/05/17 17:51 MCHC 31 % (30-34) 10/05/17 17:51 RDW 19.6 % (13.2-15.2) H 10/05/17 17:51 Plt Count 268 K/mm3 (140-440) 10/05/17 17:51 Lymph % (Auto) 11.9 % (13.4-35.0) L 10/02/17 06:52 [place] % (Auto) 5.7 % (0.0-7.3) 10/02/17 06:52 Eos % (Auto) 0.7 % (0.0-4.3) 10/02/17 06:52 Baso % (Auto) 0.5 % (0.0-1.8) 10/02/17 06:52 Lymph # 1.3 K/mm3 (1.2-5.4) 10/02/17 06:52 [place] # 0.6 K/mm3 (0.0-0.8) 10/02/17 06:52 Eos # 0.1 K/mm3 (0.0-0.4) 10/02/17 06:52 Baso # 0.1 K/mm3 (0.0-0.1) 10/02/17 06:52 Seg Neutrophils % 81.2 % (40.0-70.0) H 10/02/17 06:52 Seg Neutrophils # 9.1 K/mm3 (1.8-7.7) H 10/02/17 06:52 PT 12.9 Sec. (12.2-14.9) 10/02/17 06:52 INR 0.93 (0.87-1.13) 10/02/17 06:52 APTT 25.9 Sec. (24.2-36.6) 10/02/17 06:52 Thrombin Time 16.0 Sec. (15.1-19.6) 10/02/17 06:52 Sodium 145 mmol/L (137-145) 10/07/17 05:12 Potassium 3.4 mmol/L (3.6-5.0) L 10/07/17 05:12 Chloride 104.0 mmol/L (98-107) 10/07/17 05:12 Carbon Dioxide 28 mmol/L (22-30) 10/07/17 05:12 Anion Gap 16 mmol/L 10/07/17 05:12 BUN 29 mg/dL (7-17) H 10/07/17 05:12 Creatinine 1.5 mg/dL (0.7-1.2) H 10/07/17 05:12 Estimated GFR 42 ml/min 10/07/17 05:12 BUN/Creatinine Ratio 19 % 10/07/17 05:12 Glucose 95 mg/dL (65-100) 10/07/17 05:12 POC Glucose 107 (70-105) H 10/07/17 12:16 Hemoglobin A1c 6.0 % (4-6) 10/03/17 16:11 Calcium 8.6 mg/dL (8.4-10.2) 10/07/17 05:12 Troponin T 0.025 ng/mL (0.00-0.029) 10/02/17 13:25 NT-Pro-B Natriuret Pep 1744 pg/mL (0-900) H 10/02/17 13:25 Triglycerides 61 mg/dL (2-149) 10/02/17 06:52 Cholesterol 64 mg/dL (50-199) 10/02/17 06:52 LDL Cholesterol Direct 14 mg/dL (50-130) L 10/02/17 06:52 HDL Cholesterol 49 mg/dL (40-59) 10/02/17 06:52 Cholesterol/HDL Ratio 1.30 % 10/02/17 06:52
[2017-10-07] MEDS: RESTORIL PO SCH (21:21)
[2017-10-07] MEDS: NACL 0.45% 1000 ML 1,000 ML IV SCH (21:24)
[2017-10-07] MEDS: MILK OF MAGNESIA PO PRN (21:36)
[2017-10-08 06:00] LABS: Basophils # (Auto) 0.1 K/mm3 (0.0-0.1); Basophils % (Auto) 0.7 % (0.0-1.8); Eosinophils # (Auto) 0.1 K/mm3 (0.0-0.4); Eosinophils % (Auto) 1.5 % (0.0-4.3); Hematocrit 34.1 % (30.3-42.9); Lymphocytes # (Auto) 1.9 K/mm3 (1.2-5.4); Lymphocytes % (Auto) 21.2 % (13.4-35.0); Mean Corpuscular HGB Conc 32 % (30-34); Mean Corpuscular Volume 77 fl (79-97); Monocytes # (Auto) 0.7 K/mm3 (0.0-0.8); Monocytes % (Auto) 7.5 % (0.0-7.3); Platelet Count 229 K/mm3 (140-440); Red Blood Count 4.41 M/mm3 (3.65-5.03); Red Cell Distribution Width 19.6 % (13.2-15.2)
[2017-10-08 06:05] LABS: Mean Corpuscular Hemoglobin 25 pg (28-32)
[2017-10-08 06:14] LABS: Calcium 8.7 mg/dL (8.4-10.2)
[2017-10-08] MEDS: MAG-OX PO SCH (10:22)
[2017-10-08] MEDS: COREG PO SCH ×2 (10:22→22:54)
[2017-10-08] MEDS: ASPIRIN PO SCH (10:22)
[2017-10-08] MEDS: PROCARDIA XL PO SCH (10:22)
[2017-10-08] MEDS: MILK OF MAGNESIA PO PRN (12:49)
--- NOTE | 2017-10-08 17:53 | Progress Note ---
Assessment and Plan Assessment and plan: 67 YO Female with h/o Atrial Fib not on anticoagulation, HTN, DM, presents to ED for evaluation. Pt stated that she experienced an episode of left-sided weakness, slurred speech, and left hand numbness that began at 5hrs. Pt states that she went to bed and awoke with the same symptoms as well as difficulty speaking, and inability to get out of bed and ambulate due to Left sided weakness. EMS was notified and upon arrival, the patient was found to have symptoms consistent with acute CVA. Code Stroke Called, and patient was transported to [facility] for further care and evaluation. No TPA given as she was out of window. Acute CVA (cerebral vascular accident) - MRI brain showed acute right parietal lobe CVA - Repeat CT showed progression of stroke in the right temporal parietal area - Neurology reconsult and recommended to start and increase after 18 days Left sided hemiparesis - PT was consulted and recommended subacute rehabilitation Chronic atrial fibrillation - Cardiology was consulted and on workup was negative - We'll restart and increase after 18 days Diabetes Consistent carbohydrate diet, accu check, insulin with SSI for now HTN, BP controlled with current meds PERCY - will monitor, cont on iv fluid, likely from dehydration DVT prophylaxis SCDs, patient has CVA and it has progressed and patient doesn't need anticoagulation. History Interval history: Patient was seen and evaluated this morning, patient still have left-sided weakness. No new complaints, I have discussed the management plan with the patient and her daughter. Hospitalist Physical - Physical exam Narrative exam: Not in cardiopulmonary distress. The patient appeared well nourished and normally developed. Vital signs as documented. Head exam is unremarkable. No scleral icterus . Neck is without jugular venous distension, thyromegaly, or carotid bruits. Lungs are clear to auscultation. Cardiac exam reveals regular rate and Rhythm. Abdominal exam reveals normal bowel sounds. Extremities are nonedematous and both femoral and pedal pulses are normal. 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 Left upper and lower extremity weakness. - Constitutional Vitals: Temp Pulse Resp BP Pulse Ox 97.3 F L 81 20 143/103 98 10/08/17 08:59 10/08/17 10:00 10/08/17 10:00 10/08/17 10:22 10/08/17 08:59 General appearance: Present: no acute distress Results - Labs CBC & Chem 7: 04/26/18 05:35 10/08/17 05:35 Labs: Laboratory Last Values WBC 9.0 K/mm3 (4.5-11.0) 10/08/17 05:35 RBC 4.41 M/mm3 (3.65-5.03) 10/08/17 05:35 Hgb 11.0 gm/dl (10.1-14.3) 10/08/17 05:35 Hct 34.1 % (30.3-42.9) 10/08/17 05:35 MCV 77 fl (79-97) L 10/08/17 05:35 MCH 25 pg (28-32) L 10/08/17 05:35 MCHC 32 % (30-34) 10/08/17 05:35 RDW 19.6 % (13.2-15.2) H 10/08/17 05:35 Plt Count 229 K/mm3 (140-440) 10/08/17 05:35 Lymph % (Auto) 21.2 % (13.4-35.0) 10/08/17 05:35 [place] % (Auto) 7.5 % (0.0-7.3) H 10/08/17 05:35 Eos % (Auto) 1.5 % (0.0-4.3) 10/08/17 05:35 Baso % (Auto) 0.7 % (0.0-1.8) 10/08/17 05:35 Lymph # 1.9 K/mm3 (1.2-5.4) 10/08/17 05:35 [place] # 0.7 K/mm3 (0.0-0.8) 10/08/17 05:35 Eos # 0.1 K/mm3 (0.0-0.4) 10/08/17 05:35 Baso # 0.1 K/mm3 (0.0-0.1) 10/08/17 05:35 Seg Neutrophils % 69.1 % (40.0-70.0) 10/08/17 05:35 Seg Neutrophils # 6.2 K/mm3 (1.8-7.7) 10/08/17 05:35 PT 12.9 Sec. (12.2-14.9) 10/02/17 06:52 INR 0.93 (0.87-1.13) 10/02/17 06:52 APTT 25.9 Sec. (24.2-36.6) 10/02/17 06:52 Thrombin Time 16.0 Sec. (15.1-19.6) 10/02/17 06:52 Sodium 144 mmol/L (137-145) 10/08/17 05:35 Potassium 3.9 mmol/L (3.6-5.0) 10/08/17 05:35 Chloride 106.3 mmol/L (98-107) 10/08/17 05:35 Carbon Dioxide 30 mmol/L (22-30) 10/08/17 05:35 Anion Gap 12 mmol/L 10/08/17 05:35 BUN 28 mg/dL (7-17) H 10/08/17 05:35 Creatinine 1.3 mg/dL (0.7-1.2) H 10/08/17 05:35 Estimated GFR 50 ml/min 10/08/17 05:35 BUN/Creatinine Ratio 22 % 10/08/17 05:35 Glucose 109 mg/dL (65-100) H 10/08/17 05:35 POC Glucose 127 (70-105) H 10/08/17 11:58 Hemoglobin A1c 6.0 % (4-6) 10/03/17 16:11 Calcium 8.7 mg/dL (8.4-10.2) 10/08/17 05:35 Troponin T 0.025 ng/mL (0.00-0.029) 10/02/17 13:25 NT-Pro-B Natriuret Pep 1744 pg/mL (0-900) H 10/02/17 13:25 Triglycerides 61 mg/dL (2-149) 10/02/17 06:52 Cholesterol 64 mg/dL (50-199) 10/02/17 06:52 LDL Cholesterol Direct 14 mg/dL (50-130) L 10/02/17 06:52 HDL Cholesterol 49 mg/dL (40-59) 10/02/17 06:52 Cholesterol/HDL Ratio 1.30 % 10/02/17 06:52
[2017-10-08] MEDS: NACL 0.45% 1000 ML 1,000 ML IV SCH (18:37)
[2017-10-08] MEDS: RESTORIL PO SCH (22:54)
[2017-10-09] MEDS: NACL 0.45% 1000 ML 1,000 ML IV SCH (07:08)
--- NOTE | 2017-10-09 13:46 | Query- Renal Failure ---
Dear _Sal Date:____10/09/17 Supervisor Blasting/CDS:___Sushilit Phone#:____[phone] Exercise your independent professional judgment when responding to query. Questions asked do not imply a particular answer is desired or expected. We greatly appreciate your clarification on this issue. Clinical Documentation States: 67 year old female was admitted on 10/02/17 The progress note (Dr. Huang 10/08/17) states " 67 YO Female with h/o Atrial Fib not on anticoagulation, HTN, DM, presents to ED for evaluation. HTN, BP controlled with current meds PERCY - will monitor, cont on iv fluid, likely from dehydration " Clinical Findings Show: 10/02/17 10/06/17 10/08/17 Creatinine: 1.1 1.5 1.3 Please clarify if you mean: Acute Renal Failure with or due to: [ ] Tubular Necrosis [ ] Medullary Necrosis [ x] Vasomotor Nephropathy [ ] Shock Kidney [ ] Tubular Nephrosis [ ] Renal Tubular Stasis [ ] Cortical Necrosis [ ] Acute Renal Failure (unspecified) [ ] Lower Tubular Nephrosis [ ] Other: [ ] Not Applicable Present on Admission: [ ] Yes (Y) [ ] Clinically undeterminable (W) [ x] No (N) Please also document response in your Progress Notes and/or Discharge Summary and indicate if the condition was present on admission. BINDUD
[2017-10-09] MEDS: PROCARDIA XL PO SCH (14:34)
[2017-10-09] MEDS: COREG PO SCH ×2 (14:34→22:11)
--- NOTE | 2017-10-09 15:24 | Progress Note ---
Assessment and Plan Assessment and plan: 67 YO Female with h/o Atrial Fib not on anticoagulation, HTN, DM, presents to ED for evaluation. Pt stated that she experienced an episode of left-sided weakness, slurred speech, and left hand numbness that began at 5hrs. Pt states that she went to bed and awoke with the same symptoms as well as difficulty speaking, and inability to get out of bed and ambulate due to Left sided weakness. EMS was notified and upon arrival, the patient was found to have symptoms consistent with acute CVA. Code Stroke Called, and patient was transported to [facility] for further care and evaluation. No TPA given as she was out of window. Acute CVA (cerebral vascular accident) - MRI brain showed acute right parietal lobe CVA - Repeat CT showed progression of stroke in the right temporal parietal area - Neurology reconsult and recommended to start and increase after 18 days Left sided hemiparesis - PT was consulted and recommended subacute rehabilitation Chronic atrial fibrillation - Cardiology was consulted and on workup was negative - We'll restart and increase after 18 days Diabetes Consistent carbohydrate diet, accu check, insulin with SSI for now HTN, BP controlled with current meds PERCY - will monitor, cont on iv fluid, likely from dehydration DVT prophylaxis SCDs, patient has CVA and it has progressed and patient doesn't need anticoagulation. Disposition - Pending rehabilitation placement. History Interval history: Patient was seen and evaluated this morning, patient still have left-sided weakness. No new complaints, I have discussed the management plan with the patient and her daughter. Hospitalist Physical - Physical exam Narrative exam: Not in cardiopulmonary distress. The patient appeared well nourished and normally developed. Vital signs as documented. Head exam is unremarkable. No scleral icterus . Neck is without jugular venous distension, thyromegaly, or carotid bruits. Lungs are clear to auscultation. Cardiac exam reveals regular rate and Rhythm. Abdominal exam reveals normal bowel sounds. Extremities are nonedematous and both femoral and pedal pulses are normal. 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 Left upper and lower extremity weakness. - Constitutional Vitals: Temp Pulse Resp BP Pulse Ox 98.0 F 65 20 104/73 96 10/09/17 13:23 10/09/17 13:23 10/09/17 13:23 10/09/17 13:23 10/09/17 11:37 General appearance: Present: no acute distress Results - Labs CBC & Chem 7: 10/08/17 05:35 10/08/17 05:35 Labs: Laboratory Last Values WBC 9.0 K/mm3 (4.5-11.0) 10/08/17 05:35 RBC 4.41 M/mm3 (3.65-5.03) 10/08/17 05:35 Hgb 11.0 gm/dl (10.1-14.3) 10/08/17 05:35 Hct 34.1 % (30.3-42.9) 10/08/17 05:35 MCV 77 fl (79-97) L 10/08/17 05:35 MCH 25 pg (28-32) L 10/08/17 05:35 MCHC 32 % (30-34) 10/08/17 05:35 RDW 19.6 % (13.2-15.2) H 10/08/17 05:35 Plt Count 229 K/mm3 (140-440) 10/08/17 05:35 Lymph % (Auto) 21.2 % (13.4-35.0) 10/08/17 05:35 [place] % (Auto) 7.5 % (0.0-7.3) H 10/08/17 05:35 Eos % (Auto) 1.5 % (0.0-4.3) 10/08/17 05:35 Baso % (Auto) 0.7 % (0.0-1.8) 10/08/17 05:35 Lymph # 1.9 K/mm3 (1.2-5.4) 10/08/17 05:35 [place] # 0.7 K/mm3 (0.0-0.8) 10/08/17 05:35 Eos # 0.1 K/mm3 (0.0-0.4) 10/08/17 05:35 Baso # 0.1 K/mm3 (0.0-0.1) 10/08/17 05:35 Seg Neutrophils % 69.1 % (40.0-70.0) 10/08/17 05:35 Seg Neutrophils # 6.2 K/mm3 (1.8-7.7) 10/08/17 05:35 PT 12.9 Sec. (12.2-14.9) 10/02/17 06:52 INR 0.93 (0.87-1.13) 10/02/17 06:52 APTT 25.9 Sec. (24.2-36.6) 10/02/17 06:52 Thrombin Time 16.0 Sec. (15.1-19.6) 10/02/17 06:52 Sodium 144 mmol/L (137-145) 10/08/17 05:35 Potassium 3.9 mmol/L (3.6-5.0) 10/08/17 05:35 Chloride 106.3 mmol/L (98-107) 10/08/17 05:35 Carbon Dioxide 30 mmol/L (22-30) 10/08/17 05:35 Anion Gap 12 mmol/L 10/08/17 05:35 BUN 28 mg/dL (7-17) H 10/08/17 05:35 Creatinine 1.3 mg/dL (0.7-1.2) H 10/08/17 05:35 Estimated GFR 50 ml/min 10/08/17 05:35 BUN/Creatinine Ratio 22 % 10/08/17 05:35 Glucose 109 mg/dL (65-100) H 10/08/17 05:35 POC Glucose 123 (70-105) H 10/09/17 11:37 Hemoglobin A1c 6.0 % (4-6) 10/03/17 16:11 Calcium 8.7 mg/dL (8.4-10.2) 10/08/17 05:35 Troponin T 0.025 ng/mL (0.00-0.029) 10/02/17 13:25 NT-Pro-B Natriuret Pep 1744 pg/mL (0-900) H 10/02/17 13:25 Triglycerides 61 mg/dL (2-149) 10/02/17 06:52 Cholesterol 64 mg/dL (50-199) 10/02/17 06:52 LDL Cholesterol Direct 14 mg/dL (50-130) L 10/02/17 06:52 HDL Cholesterol 49 mg/dL (40-59) 10/02/17 06:52 Cholesterol/HDL Ratio 1.30 % 10/02/17 06:52
[2017-10-09] MEDS: MAG-OX PO SCH (17:56)
[2017-10-09] MEDS: ASPIRIN PO SCH (17:56)
[2017-10-09] MEDS: RESTORIL PO SCH (22:11)
[2017-10-10] MEDS: NACL 0.45% 1000 ML 1,000 ML IV SCH (02:53)
[2017-10-10] MEDS: COREG PO SCH ×2 (09:00→21:52)
[2017-10-10] MEDS: PROCARDIA XL PO SCH (09:00)
[2017-10-10] MEDS: ASPIRIN PO SCH (09:00)
[2017-10-10] MEDS: MAG-OX PO SCH (09:01)
--- NOTE | 2017-10-10 14:41 | Progress Note ---
Assessment and Plan Assessment and plan: 67 YO Female with h/o Atrial Fib not on anticoagulation, HTN, DM, presents to ED for evaluation. Pt stated that she experienced an episode of left-sided weakness, slurred speech, and left hand numbness that began at 5hrs. Pt states that she went to bed and awoke with the same symptoms as well as difficulty speaking, and inability to get out of bed and ambulate due to Left sided weakness. EMS was notified and upon arrival, the patient was found to have symptoms consistent with acute CVA. Code Stroke Called, and patient was transported to [facility] for further care and evaluation. No TPA given as she was out of window. Acute CVA (cerebral vascular accident) - MRI brain showed acute right parietal lobe CVA - Repeat CT showed progression of stroke in the right temporal parietal area - Neurology reconsult and recommended to start and increase after 18 days Left sided hemiparesis - PT was consulted and recommended subacute rehabilitation Chronic atrial fibrillation - Cardiology was consulted and on workup was negative - We'll restart and increase after 18 days Diabetes Consistent carbohydrate diet, accu check, insulin with SSI for now HTN, BP controlled with current meds PERCY - will monitor, cont on iv fluid, likely from dehydration DVT prophylaxis SCDs, patient has CVA and it has progressed and patient doesn't need anticoagulation. Disposition - Pending rehabilitation placement. History Interval history: Patient was seen and evaluated this morning, patient still have left-sided weakness. No new complaints, I have discussed the management plan with the patient and her daughter. Hospitalist Physical - Physical exam Narrative exam: Not in cardiopulmonary distress. The patient appeared well nourished and normally developed. Vital signs as documented. Head exam is unremarkable. No scleral icterus . Neck is without jugular venous distension, thyromegaly, or carotid bruits. Lungs are clear to auscultation. Cardiac exam reveals regular rate and Rhythm. Abdominal exam reveals normal bowel sounds. Extremities are nonedematous and both femoral and pedal pulses are normal. CLINICAL STUDIES SPECIALIST: Alert and oriented 3. Left upper and lower extremity weakness. - Constitutional Vitals: Temp Pulse Resp BP Pulse Ox 97.9 F 79 22 126/94 98 10/10/17 13:47 10/10/17 13:47 10/10/17 07:30 10/10/17 13:47 10/10/17 13:47 General appearance: Present: no acute distress Results - Labs CBC & Chem 7: 10/08/17 05:35 10/08/17 05:35 Labs: Laboratory Last Values WBC 9.0 K/mm3 (4.5-11.0) 10/08/17 05:35 RBC 4.41 M/mm3 (3.65-5.03) 10/08/17 05:35 Hgb 11.0 gm/dl (10.1-14.3) 10/08/17 05:35 Hct 34.1 % (30.3-42.9) 10/08/17 05:35 MCV 77 fl (79-97) L 10/08/17 05:35 MCH 25 pg (28-32) L 10/08/17 05:35 MCHC 32 % (30-34) 10/08/17 05:35 RDW 19.6 % (13.2-15.2) H 10/08/17 05:35 Plt Count 229 K/mm3 (140-440) 10/08/17 05:35 Lymph % (Auto) 21.2 % (13.4-35.0) 10/08/17 05:35 [place] % (Auto) 7.5 % (0.0-7.3) H 10/08/17 05:35 Eos % (Auto) 1.5 % (0.0-4.3) 10/08/17 05:35 Baso % (Auto) 0.7 % (0.0-1.8) 10/08/17 05:35 Lymph # 1.9 K/mm3 (1.2-5.4) 10/08/17 05:35 [place] # 0.7 K/mm3 (0.0-0.8) 10/08/17 05:35 Eos # 0.1 K/mm3 (0.0-0.4) 10/08/17 05:35 Baso # 0.1 K/mm3 (0.0-0.1) 10/08/17 05:35 Seg Neutrophils % 69.1 % (40.0-70.0) 10/08/17 05:35 Seg Neutrophils # 6.2 K/mm3 (1.8-7.7) 10/08/17 05:35 PT 12.9 Sec. (12.2-14.9) 10/02/17 06:52 INR 0.93 (0.87-1.13) 10/02/17 06:52 APTT 25.9 Sec. (24.2-36.6) 10/02/17 06:52 Thrombin Time 16.0 Sec. (15.1-19.6) 10/02/17 06:52 Sodium 144 mmol/L (137-145) 10/08/17 05:35 Potassium 3.9 mmol/L (3.6-5.0) 10/08/17 05:35 Chloride 106.3 mmol/L (98-107) 10/08/17 05:35 Carbon Dioxide 30 mmol/L (22-30) 10/08/17 05:35 Anion Gap 12 mmol/L 10/08/17 05:35 BUN 28 mg/dL (7-17) H 10/08/17 05:35 Creatinine 1.3 mg/dL (0.7-1.2) H 10/08/17 05:35 Estimated GFR 50 ml/min 10/08/17 05:35 BUN/Creatinine Ratio 22 % 10/08/17 05:35 Glucose 109 mg/dL (65-100) H 10/08/17 05:35 POC Glucose 98 (70-105) 10/10/17 05:16 Hemoglobin A1c 6.0 % (4-6) 10/03/17 16:11 Calcium 8.7 mg/dL (8.4-10.2) 10/08/17 05:35 Troponin T 0.025 ng/mL (0.00-0.029) 10/02/17 13:25 NT-Pro-B Natriuret Pep 1744 pg/mL (0-900) H 10/02/17 13:25 Triglycerides 61 mg/dL (2-149) 10/02/17 06:52 Cholesterol 64 mg/dL (50-199) 10/02/17 06:52 LDL Cholesterol Direct 14 mg/dL (50-130) L 10/02/17 06:52 HDL Cholesterol 49 mg/dL (40-59) 10/02/17 06:52 Cholesterol/HDL Ratio 1.30 % 10/02/17 06:52
[2017-10-10] MEDS: RESTORIL PO SCH (21:51)
[2017-10-11] MEDS: MAG-OX PO SCH (10:09)
[2017-10-11] MEDS: PROCARDIA XL PO SCH (10:09)
[2017-10-11] MEDS: ASPIRIN PO SCH (10:10)
[2017-10-11] MEDS: COREG PO SCH ×2 (10:10→22:01)
[2017-10-11] MEDS: NACL 0.45% 1000 ML 1,000 ML IV SCH (10:13)
--- NOTE | 2017-10-11 13:32 | Progress Note ---
Assessment and Plan Assessment and plan: 67 YO Female with h/o Atrial Fib not on anticoagulation, HTN, DM, presents to ED for evaluation. Pt stated that she experienced an episode of left-sided weakness, slurred speech, and left hand numbness that began at 5hrs. Pt states that she went to bed and awoke with the same symptoms as well as difficulty speaking, and inability to get out of bed and ambulate due to Left sided weakness. EMS was notified and upon arrival, the patient was found to have symptoms consistent with acute CVA. Code Stroke Called, and patient was transported to [facility] for further care and evaluation. No TPA given as she was out of window. Acute CVA (cerebral vascular accident) - MRI brain showed acute right parietal lobe CVA - Repeat CT showed progression of stroke in the right temporal parietal area - Neurology reconsult and recommended to start and increase after 18 days Left sided hemiparesis - PT was consulted and recommended subacute rehabilitation Chronic atrial fibrillation - Cardiology was consulted and on workup was negative - We'll restart and increase after 18 days Diabetes Consistent carbohydrate diet, accu check, insulin with SSI for now HTN, BP controlled with current meds PERCY - will monitor, cont on iv fluid, likely from dehydration DVT prophylaxis SCDs, patient has CVA and it has progressed and patient doesn't need anticoagulation. Disposition - Pending rehabilitation placement. History Interval history: Patient was seen and evaluated this morning, patient still have left-sided weakness. No new complaints, I have discussed the management plan with the patient and her daughter. Hospitalist Physical - Physical exam Narrative exam: Not in cardiopulmonary distress. The patient appeared well nourished and normally developed. Vital signs as documented. Head exam is unremarkable. No scleral icterus . Neck is without jugular venous distension, thyromegaly, or carotid bruits. Lungs are clear to auscultation. Cardiac exam reveals regular rate and Rhythm. Abdominal exam reveals normal bowel sounds. Extremities are nonedematous and both femoral and pedal pulses are normal. 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 Left upper and lower extremity weakness. - Constitutional Vitals: Temp Pulse Resp BP Pulse Ox 97.2 F L 82 19 136/99 93 10/11/17 09:23 10/11/17 10:10 10/11/17 09:23 10/11/17 10:10 10/11/17 09:23 General appearance: Present: no acute distress Results - Labs CBC & Chem 7: 10/08/17 05:35 10/08/17 05:35 Labs: Laboratory Last Values WBC 9.0 K/mm3 (4.5-11.0) 10/08/17 05:35 RBC 4.41 M/mm3 (3.65-5.03) 10/08/17 05:35 Hgb 11.0 gm/dl (10.1-14.3) 10/08/17 05:35 Hct 34.1 % (30.3-42.9) 10/08/17 05:35 MCV 77 fl (79-97) L 10/08/17 05:35 MCH 25 pg (28-32) L 10/08/17 05:35 MCHC 32 % (30-34) 10/08/17 05:35 RDW 19.6 % (13.2-15.2) H 10/08/17 05:35 Plt Count 229 K/mm3 (140-440) 10/08/17 05:35 Lymph % (Auto) 21.2 % (13.4-35.0) 10/08/17 05:35 [place] % (Auto) 7.5 % (0.0-7.3) H 10/08/17 05:35 Eos % (Auto) 1.5 % (0.0-4.3) 10/08/17 05:35 Baso % (Auto) 0.7 % (0.0-1.8) 10/08/17 05:35 Lymph # 1.9 K/mm3 (1.2-5.4) 10/08/17 05:35 [place] # 0.7 K/mm3 (0.0-0.8) 10/08/17 05:35 Eos # 0.1 K/mm3 (0.0-0.4) 10/08/17 05:35 Baso # 0.1 K/mm3 (0.0-0.1) 10/08/17 05:35 Seg Neutrophils % 69.1 % (40.0-70.0) 10/08/17 05:35 Seg Neutrophils # 6.2 K/mm3 (1.8-7.7) 10/08/17 05:35 PT 12.9 Sec. (12.2-14.9) 10/02/17 06:52 INR 0.93 (0.87-1.13) 10/02/17 06:52 APTT 25.9 Sec. (24.2-36.6) 10/02/17 06:52 Thrombin Time 16.0 Sec. (15.1-19.6) 10/02/17 06:52 Sodium 144 mmol/L (137-145) 10/08/17 05:35 Potassium 3.9 mmol/L (3.6-5.0) 10/08/17 05:35 Chloride 106.3 mmol/L (98-107) 10/08/17 05:35 Carbon Dioxide 30 mmol/L (22-30) 10/08/17 05:35 Anion Gap 12 mmol/L 10/08/17 05:35 BUN 28 mg/dL (7-17) H 10/08/17 05:35 Creatinine 1.3 mg/dL (0.7-1.2) H 10/08/17 05:35 Estimated GFR 50 ml/min 10/08/17 05:35 BUN/Creatinine Ratio 22 % 10/08/17 05:35 Glucose 109 mg/dL (65-100) H 10/08/17 05:35 POC Glucose 125 (70-105) H 10/11/17 11:37 Hemoglobin A1c 6.0 % (4-6) 10/03/17 16:11 Calcium 8.7 mg/dL (8.4-10.2) 10/08/17 05:35 Troponin T 0.025 ng/mL (0.00-0.029) 10/02/17 13:25 NT-Pro-B Natriuret Pep 1744 pg/mL (0-900) H 10/02/17 13:25 Triglycerides 61 mg/dL (2-149) 10/02/17 06:52 Cholesterol 64 mg/dL (50-199) 10/02/17 06:52 LDL Cholesterol Direct 14 mg/dL (50-130) L 10/02/17 06:52 HDL Cholesterol 49 mg/dL (40-59) 10/02/17 06:52 Cholesterol/HDL Ratio 1.30 % 10/02/17 06:52
[2017-10-11] MEDS: RESTORIL PO SCH (22:00)
[2017-10-12] MEDS: NACL 0.45% 1000 ML 1,000 ML IV SCH (01:19)
--- NOTE | 2017-10-12 10:38 | Discharge Summary ---
Providers - Providers Date of Admission: 10/02/17 12:23 Attending physician: KALYANI JOSUE MD 10/02/17 12:23 Occupational Therapy Evaluate and Treat [CONS] Routine Comment: Reason For Exam: Neuro deficits Physical Therapy Evaluation and Treat [CONS] Routine Comment: Reason For Exam: Neuro deficits 10/02/17 12:24 Speech Therapy Evaluation and Treat [CONS] Routine Reason For Exam: swallow eval 10/02/17 13:42 Speech Therapy Evaluation and Treat [CONS] Routine Reason For Exam: drooling 10/03/17 11:15 Consult to Physician [CONS] Routine Comment: Consulting Provider: CHELSEY ARAUJO Physician Instructions: Reason For Exam: possible cva 10/05/17 15:27 Consult to Physician [CONS] Routine Comment: Consulting Provider: CHELSEY ARAUJO Physician Instructions: Reason For Exam: cva Primary care physician: KIKA VENTURA Hospitalization Reason for admission: Acute CVA Condition: Serious Pertinent studies: CT head MRI head Hospital course: 67 YO Female with h/o Atrial Fib not on anticoagulation, HTN, DM, presents to ED for evaluation. Pt stated that she experienced an episode of left-sided weakness, slurred speech, and left hand numbness that began at 5hrs. Pt states that she went to bed and awoke with the same symptoms as well as difficulty speaking, and inability to get out of bed and ambulate due to Left sided weakness. EMS was notified and upon arrival, the patient was found to have symptoms consistent with acute CVA. Code Stroke Called, and patient was transported to [facility] for further care and evaluation. No TPA given as she was out of window. Acute CVA (cerebral vascular accident) - MRI brain showed acute right parietal lobe CVA - Repeat CT showed progression of stroke in the right temporal parietal area - Neurology reconsult and recommended to start eliquis after waiting 18 days - Patient was discharged with statin, aspirin and eliquis Left sided hemiparesis - Showed improvement with PT Chronic atrial fibrillation - Cardiology was consulted and on workup was negative - We'll restart and increase after 18 days Diabetes - A1C was 6 and advised to have consistent carbohydrate diet and follow up with PCP Patient was hemodynamically stable by the time of discharge. Appropriate medications were transferred to SNF. Disposition: [id number]/TX-03 SNF [facility] Time spent for discharge: 31 minutes - Discharge Diagnoses (1) CVA (cerebral vascular accident) Status: Acute Qualifiers: Precerebral and cerebral artery: middle cerebral artery Laterality of affected vessel: right (2) Left-sided weakness Status: Acute (3) Slurred speech Status: Acute (4) HTN (hypertension) Status: Chronic Qualifiers: Hypertension type: essential hypertension Qualified Code(s): I10 - Essential (primary) hypertension (5) T2DM (type 2 diabetes mellitus) Status: Chronic Qualifiers: Diabetes mellitus care home insulin use: without care home use Diabetes mellitus complication status: without complication Qualified Code(s): E11.9 - Type 2 diabetes mellitus without complications Core Measure Documentation - Palliative Care Palliative Care/ Comfort Measures: Not Applicable - Core Measures Any of the following diagnoses?: stroke - Stroke Discharge Requirements Statin for LDL = or >70 mg/dl on DC: Yes Anticoag for atrial fib/atrial flutter: Yes (will be started on october 21) Antithrombotic for ischemic stroke: Yes Exam - Physical Exam Narrative exam: Not in cardiopulmonary distress. The patient appeared well nourished and normally developed. Vital signs as documented. Head exam is unremarkable. No scleral icterus . Neck is without jugular venous distension, thyromegaly, or carotid bruits. Lungs are clear to auscultation. Cardiac exam reveals regular rate and Rhythm. Abdominal exam reveals normal bowel sounds. Extremities are nonedematous and both femoral and pedal pulses are normal. LUMBER TAILER: Alert and oriented 3. Left hemiparesis. - Constitutional Vitals: Temp Pulse Resp BP Pulse Ox 98.6 F 83 20 171/95 95 10/12/17 07:57 10/12/17 07:57 10/12/17 07:57 10/12/17 07:57 10/12/17 07:57 Plan Activity: advance as tolerated Weight Bearing Status: Partial Weight Bearing Diet: low cholesterol, low salt, diabetic Special Instructions: physical therapy, occupational therapy Follow up with: KIKA VENTURA MD [Primary Care Provider] - 7 Days Prescriptions: Apixaban [Eliquis] 5 mg PO BID #60 tablet Aspirin EC [Aspirin Enteric Coated TAB] 81 mg PO QDAY #7 tablet.
[2017-10-12] MEDS: ASPIRIN PO SCH (11:07)
[2017-10-12] MEDS: PROCARDIA XL PO SCH (11:07)
[2017-10-12] MEDS: MAG-OX PO SCH (11:08)
[2017-10-12] MEDS: COREG PO SCH (11:08)
[2017-10-12 15:56] VITALS: BP 132/95
--- NOTE | 2017-10-13 06:55 | Consultation ---
HISTORY OF PRESENT ILLNESS: This 67-year-old female admitted on 462. The patient is initially admitted to [facility] via the Emergency Room on 10/05/2017. The patient was admitted by the Emergency Room and at time of presentation had primary symptoms of left arm and left hand weakness as well as some facial tingling. Review of her MRI scan of the brain showed an area of infarct in the insular gyrus of the right cerebral hemisphere with a normal MRA, unremarkable echocardiogram, but history of atrial fibrillation. Cardiology consult was obtained regarding a discussion whether the patient was a candidate for Eliquis therapy. I reviewed the MRI scan. She has no current clot in the heart. Onset of the stroke was probably about 4 days ago based on the history. The infarct is limited to the cortical area. It is purely ischemic. Her CT scan of the head does not show any evidence of blood. She has no clotting disorder. ALLERGIES: She has no allergies. PAST MEDICAL HISTORY: She has a prior history of hypertension, atrial fibrillation. No prior history of MA. No prior history of any clotting disorder. PHYSICAL EXAMINATION: On my examination, her blood pressure presently is 146/80, pulse rate 86, respirations 18. She is atrial fibrillation. Ocular movements are full. Fundi benign. Speech is slightly slurred. She has left central facial weakness. Dense hemiparesis involving the left arm and left face. She does able to move the left leg. This is a hypesthesia pinprick and light touch of the entire left face, entire left arm. She does not have any cortical parietal lobe findings such as denial hemifield defect. This is an isolated cortical syndrome. IMPRESSION: Acute onset of a stroke, right cerebral hemisphere association with motor nicola deficit within the cortical distribution, which interesting does not show any perfusion problem in the MRA portion of the scan. I believe nonetheless this is probably atrial fibrillation or probably simply not seeing the branch that was blocked on the MRA as this may be a very asymmetrical cortical branch that cannot be analyzed from symmetrical distribution. RECOMMENDATION: At this point is to start her on Eliquis therapy 14 days after the onset of the stroke would be adequate. I discussed this with the home service consultant, given them my opinion. I spoke with the daughter via phone and advised them that she will need comprehensive physical therapy and rehab for her motor and sensory deficit. Fortunately, she does not have any parietal lobe cortical findings. I do not see that she has a lesion in the carotid artery, which is a treatable with endovascular therapy such as a high density lesion in the internal middle cerebral or intracranial portion of the internal carotid artery. Therapy is recommended as above. JOB# [id number] CLAUDINE/AMPARO
--- NOTE | 2017-10-14 11:48 | Vascular Lab Report ---
CAROTID DUPLEX STUDY: RIGHT PSVEDV CCA PROX:4912 CCA DIST:5014 ICA PROX:3113 ICA MID:3315 ICA DIST:5023 ECA: 39 VERT: 34 14 LEFT PSVEDV CCA PROX:6120 CCA DIST:4415 ICA PROX:279 ICA MID:6224 ICA DIST:5222 ECA: 40 VERT: 18 7 REASON FOR EXAM: Stroke. COMMENTS ON THE RIGHT: Doppler frequency analysis is consistent with 16 to 49 percent diameter reduction of the internal carotid artery. Minimal amount of plaque is seen. The common carotid artery is patent. The external carotid artery is patent. The vertebral artery has antegrade flow. COMMENTS ON THE LEFT: Doppler frequency analysis is consistent with 16 to 49 percent diameter reduction of the internal carotid artery. Minimal amount of plaque is seen. The common carotid artery is patent. The external carotid artery is patent. The vertebral artery has antegrade flow. IMPRESSION: Less than 50% diameter reduction in the internal carotid arteries bilaterally.
== END 2017-10-12 16:00 | DRG 64 ==
LOC: ED 05:22 → 4A 12:23
PROVIDERS: ADMIT Internal Medicine; ATTEND Internal Medicine
DX: I63.9 Cerebral infarction, unspecified (principal); N17.0 Acute kidney failure with tubular necrosis; G81.94 Hemiplegia, unspecified affecting left nondominant side; E66.2 Morbid (severe) obesity with alveolar hypoventilation; Z68.41 Body mass index [BMI] 40.0-44.9, adult; E87.0 Hyperosmolality and hypernatremia; I50.9 Heart failure, unspecified; E11.9 Type 2 diabetes mellitus without complications; I48.2 Chronic atrial fibrillation; D72.829 Elevated white blood cell count, unspecified; I11.0 Hypertensive heart disease with heart failure; J44.9 Chronic obstructive pulmonary disease, unspecified; Z79.899 Other long term (current) drug therapy; Z82.49 Family history of ischemic heart disease and other diseases of the circulatory system
CPT/HCPCS: 36415; 70450; 70544; 70551; 76770; 80048; 80061; 82962; 83036; 83880; 84484; 85025; 85027; 85610; 85670; 85730; 93005; 93010; 93306; 93880; 93970; A9270-GY; G8978-GP; G8979-GP; G8987-GO; G8988-GO; G8999-GN; G9186-GN; J0360